=== PATIENT | male | born 1945 | race Caucasian/White ===

== ENCOUNTER 2018-03-12 02:57 | Outpatient (CLI) | payer MEDICARE, SELFPAY ==
[2018-03-12 11:36] LABS: Anion Gap 8.5 mmol/L (3-11); BUN 66 mg/dL (7-18); CO2 29.5 mmol/L (21.0-32.0); CREATININE 2.51 mg/dL (0.70-1.30); Calcium 8.9 mg/dL (8.5-10.1); Chloride 105 mmol/L (98-107); Estimated GFR 25.33 (mL/min/1.73m2); Glucose 90 mg/dL (70-100); Potassium 4.2 mmol/L (3.5-5.1); Sodium 143 mmol/L (136-145)
== END 2018-03-12 03:17 ==
PROVIDERS: PCP Internal Medicine; Visit Provider Internal Medicine Cardiovascular Disease
DX: I10 Essential (primary) hypertension (principal)
CPT/HCPCS: 36415; 80048

== ENCOUNTER 2018-04-19 02:12 | Outpatient (CLI) | payer MEDICARE, SELFPAY ==
[2018-04-19 08:23] LABS: INR 1.6 (1.0-3.5)
== END 2018-04-19 02:32 ==
PROVIDERS: PCP Internal Medicine; Visit Provider Internal Medicine Cardiovascular Disease
DX: I48.91 Unspecified atrial fibrillation (principal)
CPT/HCPCS: 36415; 85610

== ENCOUNTER 2018-04-23 01:41 | Outpatient (CLI) | payer MEDICARE, SELFPAY ==
[2018-04-23 10:13] LABS: INR 2.2 (1.0-3.5); Prothrombin Time 20.7 sec (9.3-10.8)
== END 2018-04-23 02:01 ==
PROVIDERS: PCP Internal Medicine; Visit Provider Internal Medicine Cardiovascular Disease
DX: I48.91 Unspecified atrial fibrillation (principal)
CPT/HCPCS: 36415; 85610

== ENCOUNTER 2018-04-30 02:34 | Outpatient (CLI) | payer MEDICARE, SELFPAY ==
[2018-04-30 07:41] LABS: Bilirubin Negative (Negative); Blood Negative (Negative); Clarity Clear; Glucose Negative (Negative); Ketones Negative (Negative); Leukocyte Esterase Negative (Negative); Nitrite Negative (Negative); Specific Gravity 1.015 (1.005-1.025); Urobilinogen 0.2 EU/dL (Up TO 0.2)
[2018-04-30 07:46] LABS: Abs Immature Grans 0.01 k/cumm (0.0-0.09); Absolute Basophil Count 0.06 k/cumm (0.0-0.2); Absolute Eosinophil Count 0.29 k/cumm (0.0-0.7); Absolute Monocyte Count 0.74 k/cumm (0.11-0.7); Absolute Neutrophil Count 3.31 k/cumm (1.2-6.7); Basophils % 1.1; Eosinophils % 5.1; HCT 31.8 % (40.0-50.0); HGB 10.6 g/dL (13.5-17.5); Immature Grans % 0.2; Lymphocytes % 22.8; Mean Corp. HGB Concentration 33.3 g/dL (32.0-36.0); Mean Corpuscular Hemoglobin 29.5 pg (27.0-33.0); Mean Corpuscular Volume 88.6 fL (80-95); Neutrophils % 57.8; Platelet Count 216 x1000/uL (130-400); RBC 3.59 m/cumm (4.50-6.00); RBC Distribution Width 13.8 % (11.8-14.1); White Blood Cell Count 5.71 k/cumm (4.4-10.8)
[2018-04-30 08:01] LABS: INR 2.5 (1.0-3.5); Prothrombin Time 23.2 sec (9.3-10.8)
[2018-04-30 09:53] LABS: AST 17 U/L (15-37); Albumin 4.2 g/dL (3.4-5.0); Anion Gap 10.4 mmol/L (3-11); BUN 59 mg/dL (7-18); CO2 26.6 mmol/L (21.0-32.0); CREATININE 2.33 mg/dL (0.70-1.30); Calcium 9.4 mg/dL (8.5-10.1); Chloride 103 mmol/L (98-107); Glucose 75 mg/dL (70-100); Sodium 140 mmol/L (136-145)
[2018-04-30 10:20] LABS: Hemoglobin A1C 6.5 % (4.5-6.2)
[2018-04-30 10:24] LABS: ALT 27 U/L (12-78); Alkaline Phosphatase 36 U/L (46-116); Bilirubin, Total 0.5 mg/dL (0.2-1.0); FREE T4 1.15 ng/dL (0.76-1.46); TSH 2.59 uIU/mL (0.358-3.74)
[2018-04-30 10:39] LABS: Cholesterol 113 mg/dL (50-200); HDL Cholesterol 26 mg/dL (40-60); LDL CHOLESTEROL 67 mg/dL (<100); Triglyceride 110 mg/dL (30-150)
[2018-05-01 10:01] LABS: PSA, Diagnostic 0.3 ng/ml (0-6.5)
== END 2018-04-30 02:54 ==
PROVIDERS: Internal Medicine Cardiovascular Disease; PCP Internal Medicine; Visit Provider Internal Medicine
DX: I48.91 Unspecified atrial fibrillation (principal); Z79.01 Long term (current) use of anticoagulants; E11.21 Type 2 diabetes mellitus with diabetic nephropathy; I10 Essential (primary) hypertension; N18.9 Chronic kidney disease, unspecified; N40.0 Benign prostatic hyperplasia without lower urinary tract symptoms; E55.9 Vitamin D deficiency, unspecified
CPT/HCPCS: 36415; 80053; 80061; 82306; 83721; 81003; 83036; 84153; 84439; 84443; 85025; 85610

== ENCOUNTER 2018-05-08 01:44 | Outpatient (CLI) | payer MEDICARE, BC, SELFPAY ==
[2018-05-08 09:28] LABS: INR 2.7 (1.0-3.5); Prothrombin Time 25.4 sec (9.3-10.8)
== END 2018-05-08 02:04 ==
PROVIDERS: PCP Internal Medicine; Visit Provider Internal Medicine Cardiovascular Disease
DX: I48.91 Unspecified atrial fibrillation (principal); Z79.01 Long term (current) use of anticoagulants
CPT/HCPCS: 36415; 85610

== ENCOUNTER 2018-05-14 07:10 | Outpatient (CLI) | payer MEDICARE, BC, SELFPAY ==
[2018-05-14 09:12] LABS: INR 3.1 (1.0-3.5); Prothrombin Time 29.3 sec (9.3-10.8)
== END 2018-05-14 07:30 ==
PROVIDERS: PCP Internal Medicine; Visit Provider Internal Medicine Cardiovascular Disease
DX: I48.91 Unspecified atrial fibrillation (principal)
CPT/HCPCS: 36415; 85610

== ENCOUNTER 2018-05-21 01:59 | Outpatient (CLI) | payer MEDICARE, BC, SELFPAY ==
[2018-05-21 09:00] LABS: INR 3.2 (1.0-3.5); Prothrombin Time 30.1 sec (9.3-10.8)
== END 2018-05-21 02:19 ==
PROVIDERS: PCP Internal Medicine; Visit Provider Internal Medicine Cardiovascular Disease
DX: I48.91 Unspecified atrial fibrillation (principal)
CPT/HCPCS: 36415; 85610

== ENCOUNTER 2018-05-28 01:08 | Outpatient (CLI) | payer MEDICARE, SELFPAY ==
[2018-05-28 09:27] LABS: INR 2.4 (1.0-3.5); Prothrombin Time 22.3 sec (9.3-10.8)
== END 2018-05-28 01:28 ==
PROVIDERS: PCP Internal Medicine; Visit Provider Internal Medicine Cardiovascular Disease
DX: I48.91 Unspecified atrial fibrillation (principal); Z79.01 Long term (current) use of anticoagulants
CPT/HCPCS: 36415; 85610

== ENCOUNTER 2018-06-04 01:59 | Outpatient (CLI) | payer MEDICARE, BC, SELFPAY ==
[2018-06-04 09:22] LABS: INR 2.5 (1.0-3.5); Prothrombin Time 23.3 sec (9.3-10.8)
== END 2018-06-04 02:19 ==
PROVIDERS: PCP Internal Medicine; Visit Provider Internal Medicine Cardiovascular Disease
DX: I48.91 Unspecified atrial fibrillation (principal)
CPT/HCPCS: 36415; 85610

== ENCOUNTER 2018-06-20 02:16 | Outpatient (CLI) | payer MEDICARE, BC, SELFPAY ==
[2018-06-20 09:39] LABS: INR 3.2 (1.0-3.5); Prothrombin Time 32.1 sec (9.3-11.0)
== END 2018-06-20 02:36 ==
PROVIDERS: PCP Internal Medicine; Visit Provider Internal Medicine Cardiovascular Disease
DX: I48.91 Unspecified atrial fibrillation (principal); Z79.01 Long term (current) use of anticoagulants
CPT/HCPCS: 36415; 85610

== ENCOUNTER 2018-06-28 02:22 | Outpatient (CLI) | payer MEDICARE, BC, SELFPAY ==
[2018-06-28 09:23] LABS: Prothrombin Time 40.9 sec (9.3-11.0)
== END 2018-06-28 02:42 ==
PROVIDERS: PCP Internal Medicine; Visit Provider Internal Medicine Cardiovascular Disease
DX: I48.91 Unspecified atrial fibrillation (principal); Z79.01 Long term (current) use of anticoagulants
CPT/HCPCS: 36415; 85610

== ENCOUNTER 2018-07-05 00:51 | Outpatient (CLI) | payer MEDICARE, BC, SELFPAY ==
[2018-07-05 09:04] LABS: INR 3.2 (0.9-1.1); Prothrombin Time 32.2 sec (9.3-11.0)
== END 2018-07-05 01:11 ==
PROVIDERS: PCP Internal Medicine; Visit Provider Internal Medicine Cardiovascular Disease
DX: I48.91 Unspecified atrial fibrillation (principal); Z79.01 Long term (current) use of anticoagulants
CPT/HCPCS: 36415; 85610

== ENCOUNTER 2018-07-12 01:26 | Outpatient (CLI) | payer MEDICARE, BC, SELFPAY ==
[2018-07-12 09:58] LABS: INR 2.3 (0.9-1.1); Prothrombin Time 23.5 sec (9.3-11.0)
== END 2018-07-12 01:46 ==
PROVIDERS: PCP Internal Medicine; Visit Provider Internal Medicine Cardiovascular Disease
DX: I48.91 Unspecified atrial fibrillation (principal); Z79.01 Long term (current) use of anticoagulants
CPT/HCPCS: 36415; 85610

== ENCOUNTER 2018-07-19 06:09 | Outpatient (CLI) | payer MEDICARE, BC, SELFPAY ==
[2018-07-19 08:27] LABS: INR 1.8 (0.9-1.1)
== END 2018-07-19 06:29 ==
PROVIDERS: PCP Internal Medicine; Visit Provider Internal Medicine Cardiovascular Disease
DX: I48.91 Unspecified atrial fibrillation (principal); Z79.01 Long term (current) use of anticoagulants
CPT/HCPCS: 36415; 85610

== ENCOUNTER 2018-07-26 06:34 | Outpatient (CLI) | payer MEDICARE, BC, SELFPAY ==
[2018-07-26 08:10] LABS: INR 1.5 (0.9-1.1); Prothrombin Time 14.9 sec (9.3-11.0)
== END 2018-07-26 06:54 ==
PROVIDERS: PCP Internal Medicine; Visit Provider Internal Medicine Cardiovascular Disease
DX: I48.91 Unspecified atrial fibrillation (principal); Z79.01 Long term (current) use of anticoagulants
CPT/HCPCS: 36415; 85610

== ENCOUNTER 2018-08-02 01:30 | Outpatient (CLI) | payer MEDICARE, BC, SELFPAY ==
[2018-08-02 09:25] LABS: INR 1.7 (0.9-1.1); Prothrombin Time 17.4 sec (9.3-11.0)
== END 2018-08-02 01:50 ==
PROVIDERS: PCP Internal Medicine; Visit Provider Internal Medicine Cardiovascular Disease
DX: I48.91 Unspecified atrial fibrillation (principal); Z79.01 Long term (current) use of anticoagulants
CPT/HCPCS: 36415; 85610

== ENCOUNTER 2018-08-09 06:47 | Outpatient (CLI) | payer MEDICARE, BC, SELFPAY ==
[2018-08-09 08:44] LABS: INR 2.1 (0.9-1.1); Prothrombin Time 21.1 sec (9.3-11.0)
== END 2018-08-09 07:07 ==
PROVIDERS: PCP Internal Medicine; Visit Provider Internal Medicine Cardiovascular Disease
DX: I48.91 Unspecified atrial fibrillation (principal); Z79.01 Long term (current) use of anticoagulants
CPT/HCPCS: 36415; 85610

== ENCOUNTER 2018-08-16 06:42 | Outpatient (CLI) | payer MEDICARE, BC, SELFPAY ==
[2018-08-16 08:31] LABS: INR 2.1 (0.9-1.1); Prothrombin Time 21.5 sec (9.3-11.0)
== END 2018-08-16 07:02 ==
PROVIDERS: PCP Internal Medicine; Visit Provider Internal Medicine Cardiovascular Disease
DX: I48.91 Unspecified atrial fibrillation (principal); Z79.01 Long term (current) use of anticoagulants
CPT/HCPCS: 36415; 85610

== ENCOUNTER 2018-08-23 01:32 | Outpatient (CLI) | payer MEDICARE, BC, SELFPAY ==
[2018-08-23 09:07] LABS: INR 2.1 (0.9-1.1); Prothrombin Time 21.3 sec (9.3-11.0)
== END 2018-08-23 01:52 ==
PROVIDERS: PCP Internal Medicine; Visit Provider Internal Medicine Cardiovascular Disease
DX: I48.91 Unspecified atrial fibrillation (principal); Z79.01 Long term (current) use of anticoagulants
CPT/HCPCS: 36415; 85025; 85610

== ENCOUNTER 2018-09-20 07:02 | Outpatient (CLI) | payer MEDICARE, BC, SELFPAY ==
[2018-09-20 10:09] LABS: INR 1.8 (0.9-1.1); Prothrombin Time 18.4 sec (9.3-11.0)
== END 2018-09-20 07:22 ==
PROVIDERS: PCP Internal Medicine; Visit Provider Internal Medicine Cardiovascular Disease
DX: I48.91 Unspecified atrial fibrillation (principal); Z79.01 Long term (current) use of anticoagulants
CPT/HCPCS: 36415; 85610

== ENCOUNTER 2018-09-27 07:41 | Outpatient (CLI) | payer MEDICARE, BC, SELFPAY ==
[2018-09-27 09:46] LABS: INR 2.4 (0.9-1.1); Prothrombin Time 23.8 sec (9.3-11.0)
== END 2018-09-27 08:01 ==
PROVIDERS: PCP Internal Medicine; Visit Provider Internal Medicine Cardiovascular Disease
DX: I48.91 Unspecified atrial fibrillation (principal); Z79.01 Long term (current) use of anticoagulants
CPT/HCPCS: 36415; 85610

== ENCOUNTER 2018-10-04 01:27 | Outpatient (CLI) | payer MEDICARE, BC, SELFPAY ==
[2018-10-04 09:22] LABS: INR 2.3 (0.9-1.1); Prothrombin Time 22.9 sec (9.3-11.0)
== END 2018-10-04 01:47 ==
PROVIDERS: PCP Internal Medicine; Visit Provider Internal Medicine Cardiovascular Disease
DX: I48.91 Unspecified atrial fibrillation (principal); Z79.01 Long term (current) use of anticoagulants
CPT/HCPCS: 36415; 85610

== ENCOUNTER 2018-10-18 11:45 | Outpatient (CLI) | payer MEDICARE, BC, SELFPAY ==
[2018-10-18 08:43] LABS: INR 1.8 (0.9-1.1); Prothrombin Time 18.1 sec (9.3-11.0)
== END 2018-10-18 12:05 ==
PROVIDERS: PCP Internal Medicine; Visit Provider Internal Medicine Cardiovascular Disease
DX: I48.91 Unspecified atrial fibrillation (principal); Z79.01 Long term (current) use of anticoagulants
CPT/HCPCS: 36415; 85610

== ENCOUNTER 2018-10-24 01:26 | Outpatient (CLI) | payer MEDICARE, BC, SELFPAY ==
[2018-10-24 08:32] LABS: INR 1.7 (0.9-1.1); Prothrombin Time 17.1 sec (9.3-11.0)
== END 2018-10-24 01:46 ==
PROVIDERS: PCP Internal Medicine; Visit Provider Internal Medicine Cardiovascular Disease
DX: I48.91 Unspecified atrial fibrillation (principal); Z79.01 Long term (current) use of anticoagulants
CPT/HCPCS: 36415; 85610

== ENCOUNTER 2018-11-08 06:37 | Outpatient (CLI) | payer MEDICARE, BC, SELFPAY ==
[2018-11-08 08:14] LABS: INR 1.2 (0.9-1.1); Prothrombin Time 11.9 sec (9.3-11.0)
== END 2018-11-08 06:57 ==
PROVIDERS: PCP Internal Medicine; Visit Provider Internal Medicine Cardiovascular Disease
DX: I48.91 Unspecified atrial fibrillation (principal); Z79.01 Long term (current) use of anticoagulants
CPT/HCPCS: 36415; 85610

== ENCOUNTER 2018-11-13 02:38 | Outpatient (CLI) | payer MEDICARE, BC, SELFPAY ==
[2018-11-13 07:55] LABS: INR 1.4 (0.9-1.1)
== END 2018-11-13 02:58 ==
PROVIDERS: PCP Internal Medicine; Visit Provider Internal Medicine Cardiovascular Disease
DX: I48.91 Unspecified atrial fibrillation (principal); Z79.01 Long term (current) use of anticoagulants
CPT/HCPCS: 36415; 85610

== ENCOUNTER 2018-11-19 01:49 | Outpatient (CLI) | payer MEDICARE, BC, SELFPAY ==
[2018-11-19 08:32] LABS: INR 2.1 (0.9-1.1); Prothrombin Time 20.7 sec (9.3-11.0)
== END 2018-11-19 02:09 ==
PROVIDERS: PCP Internal Medicine; Visit Provider Internal Medicine Cardiovascular Disease
DX: I48.91 Unspecified atrial fibrillation (principal); Z79.01 Long term (current) use of anticoagulants
CPT/HCPCS: 36415; 85610

== ENCOUNTER 2018-11-26 06:56 | Outpatient (CLI) | payer MEDICARE, BC, SELFPAY ==
[2018-11-26 08:12] LABS: INR 2.5 (0.9-1.1); Prothrombin Time 24.9 sec (9.3-11.0)
== END 2018-11-26 07:16 ==
PROVIDERS: PCP Internal Medicine; Visit Provider Internal Medicine Cardiovascular Disease
DX: I48.91 Unspecified atrial fibrillation (principal); Z79.01 Long term (current) use of anticoagulants
CPT/HCPCS: 36415; 85610

== ENCOUNTER 2018-12-03 01:46 | Outpatient (CLI) | payer MEDICARE, BC, SELFPAY ==
[2018-12-03 08:18] LABS: Prothrombin Time 20.3 sec (9.3-11.0)
== END 2018-12-03 02:06 ==
PROVIDERS: PCP Internal Medicine; Visit Provider Internal Medicine Cardiovascular Disease
DX: I48.91 Unspecified atrial fibrillation (principal)
CPT/HCPCS: 36415; 85610

== ENCOUNTER 2018-12-17 01:42 | Outpatient (CLI) | payer MEDICARE, BC, SELFPAY ==
[2018-12-17 08:18] LABS: INR 2.2 (0.9-1.1)
== END 2018-12-17 02:02 ==
PROVIDERS: PCP Internal Medicine; Visit Provider Internal Medicine Cardiovascular Disease
DX: I48.91 Unspecified atrial fibrillation (principal); Z79.01 Long term (current) use of anticoagulants
CPT/HCPCS: 36415; 85610

== ENCOUNTER 2019-01-14 01:40 | Outpatient (CLI) | payer MEDICARE, BC, SELFPAY ==
[2019-01-14 08:39] LABS: INR 2.1 (0.9-1.1); Prothrombin Time 20.9 sec (9.3-11.0)
== END 2019-01-14 02:00 ==
PROVIDERS: PCP Internal Medicine; Visit Provider Internal Medicine Cardiovascular Disease
DX: I48.91 Unspecified atrial fibrillation (principal); Z79.01 Long term (current) use of anticoagulants
CPT/HCPCS: 36415; 85610

== ENCOUNTER 2019-02-10 06:53 | Outpatient (CLI) | payer MEDICARE, BC, SELFPAY ==
[2019-02-10 08:16] LABS: INR 1.8 (0.9-1.1); Prothrombin Time 17.9 sec (9.3-11.0)
[2019-02-10 09:07] LABS: ALT 31 U/L (12-78); AST 14 U/L (15-37); Alkaline Phosphatase 36 U/L (46-116); Anion Gap 10.6 mmol/L (3-11); BUN 53 mg/dL (7-18); Bilirubin, Total 0.3 mg/dL (0.2-1.0); CO2 25.4 mmol/L (21.0-32.0); CREATININE 2.13 mg/dL (0.70-1.30); Chloride 104 mmol/L (98-107); Estimated GFR 30.52 (mL/min/1.73m2); Glucose 156 mg/dL (70-100); Potassium 4.5 mmol/L (3.5-5.1); Sodium 140 mmol/L (136-145); Total Protein 7.3 g/dL (6.4-8.2)
== END 2019-02-10 07:13 ==
PROVIDERS: Internal Medicine Cardiovascular Disease; PCP Internal Medicine; Visit Provider Internal Medicine Endocrinology, Diabetes & Metabolism
DX: E11.65 Type 2 diabetes mellitus with hyperglycemia (principal); I48.91 Unspecified atrial fibrillation; Z79.01 Long term (current) use of anticoagulants
CPT/HCPCS: 36415; 80053; 85610

== ENCOUNTER 2019-02-18 01:23 | Outpatient (CLI) | payer MEDICARE, BC, SELFPAY ==
[2019-02-18 08:14] LABS: INR 2.2 (0.9-1.1); Prothrombin Time 22.1 sec (9.3-11.0)
== END 2019-02-18 01:43 ==
PROVIDERS: PCP Internal Medicine; Visit Provider Internal Medicine Cardiovascular Disease
DX: I48.91 Unspecified atrial fibrillation (principal); Z79.01 Long term (current) use of anticoagulants
CPT/HCPCS: 36415; 85610

== ENCOUNTER 2019-03-04 00:45 | Outpatient (CLI) | payer MEDICARE, BC, SELFPAY ==
[2019-03-04 08:49] LABS: INR 1.7 (0.9-1.1); Prothrombin Time 17.2 sec (9.3-11.0)
== END 2019-03-04 01:05 ==
PROVIDERS: PCP Internal Medicine; Visit Provider Internal Medicine Cardiovascular Disease
DX: I48.91 Unspecified atrial fibrillation (principal); Z79.01 Long term (current) use of anticoagulants
CPT/HCPCS: 36415; 85610

== ENCOUNTER 2019-03-11 07:14 | Outpatient (CLI) | payer MEDICARE, BC, SELFPAY ==
[2019-03-11 09:00] LABS: INR 2.1 (0.9-1.1); Prothrombin Time 21.2 sec (9.3-11.0)
== END 2019-03-11 07:34 ==
PROVIDERS: PCP Internal Medicine; Visit Provider Internal Medicine Cardiovascular Disease
DX: I48.91 Unspecified atrial fibrillation (principal); Z79.01 Long term (current) use of anticoagulants
CPT/HCPCS: 36415; 85610

== ENCOUNTER 2019-03-18 07:20 | Outpatient (CLI) | payer MEDICARE, BC, SELFPAY ==
[2019-03-18 09:58] LABS: INR 1.8 (0.9-1.1); Prothrombin Time 17.4 sec (9.3-11.0)
== END 2019-03-18 07:40 ==
PROVIDERS: PCP Internal Medicine; Visit Provider Internal Medicine Cardiovascular Disease
DX: I48.91 Unspecified atrial fibrillation (principal); Z79.01 Long term (current) use of anticoagulants
CPT/HCPCS: 36415; 85610

== ENCOUNTER 2019-03-25 06:41 | Outpatient (CLI) | payer MEDICARE, BC, SELFPAY ==
[2019-03-25 07:59] LABS: INR 2.1 (0.9-1.1); Prothrombin Time 20.3 sec (9.3-11.0)
== END 2019-03-25 07:01 ==
PROVIDERS: PCP Internal Medicine; Visit Provider Internal Medicine Cardiovascular Disease
DX: I48.91 Unspecified atrial fibrillation (principal); Z79.01 Long term (current) use of anticoagulants
CPT/HCPCS: 36415; 85610

== ENCOUNTER 2019-03-31 06:51 | Outpatient (CLI) | payer MEDICARE, BC, SELFPAY ==
[2019-03-31 08:31] LABS: INR 2.8 (0.9-1.1)
== END 2019-03-31 07:11 ==
PROVIDERS: PCP Internal Medicine; Visit Provider Internal Medicine Cardiovascular Disease
DX: I48.91 Unspecified atrial fibrillation (principal); Z79.01 Long term (current) use of anticoagulants
CPT/HCPCS: 36415; 85610

== ENCOUNTER 2019-04-08 02:07 | Outpatient (CLI) | payer MEDICARE, BC, SELFPAY ==
[2019-04-08 08:11] LABS: INR 1.5 (0.9-1.1); Prothrombin Time 15.4 sec (9.3-11.0)
== END 2019-04-08 02:27 ==
PROVIDERS: PCP Internal Medicine; Visit Provider Internal Medicine Cardiovascular Disease
DX: I48.91 Unspecified atrial fibrillation (principal); Z79.01 Long term (current) use of anticoagulants
CPT/HCPCS: 36415; 85610

== ENCOUNTER 2019-04-15 06:45 | Outpatient (CLI) | payer MEDICARE, BC, SELFPAY ==
[2019-04-15 09:05] LABS: INR 2.2 (0.9-1.1)
== END 2019-04-15 07:05 ==
PROVIDERS: PCP Internal Medicine; Visit Provider Internal Medicine Cardiovascular Disease
DX: I48.91 Unspecified atrial fibrillation (principal); Z79.01 Long term (current) use of anticoagulants
CPT/HCPCS: 36415; 85610

== ENCOUNTER 2019-04-22 02:36 | Outpatient (CLI) | payer MEDICARE, BC, SELFPAY ==
[2019-04-22 08:24] LABS: INR 2.3 (0.9-1.1); Prothrombin Time 22.3 sec (9.3-11.0)
== END 2019-04-22 02:56 ==
PROVIDERS: PCP Internal Medicine; Visit Provider Internal Medicine Cardiovascular Disease
DX: I48.91 Unspecified atrial fibrillation (principal); Z79.01 Long term (current) use of anticoagulants
CPT/HCPCS: 36415; 85610

== ENCOUNTER 2019-04-29 01:51 | Outpatient (CLI) | payer MEDICARE, BC, SELFPAY ==
[2019-04-29 08:22] LABS: INR 2.1 (0.9-1.1); Prothrombin Time 21.1 sec (9.3-11.0)
== END 2019-04-29 02:11 ==
PROVIDERS: PCP Internal Medicine; Visit Provider Internal Medicine Cardiovascular Disease
DX: I48.91 Unspecified atrial fibrillation (principal); Z79.01 Long term (current) use of anticoagulants
CPT/HCPCS: 36415; 85610

== ENCOUNTER 2019-05-13 01:52 | Outpatient (CLI) | payer MEDICARE, BC, SELFPAY ==
[2019-05-13 08:38] LABS: Hemoglobin A1C 7.7 % (4.5-6.2)
[2019-05-13 08:46] LABS: INR 2.6 (0.9-1.1); Prothrombin Time 25.7 sec (9.3-11.0)
[2019-05-13 08:50] LABS: ALT 33 U/L (16-63); AST 19 U/L (15-37); Alkaline Phosphatase 37 U/L (46-116); Anion Gap 10.2 mmol/L (3-11); BUN 50 mg/dL (7-18); Bilirubin, Total 0.5 mg/dL (0.2-1.0); CO2 26.8 mmol/L (21.0-32.0); CREATININE 1.99 mg/dL (0.70-1.30); Calcium 9.2 mg/dL (8.5-10.1); Chloride 105 mmol/L (98-107); Estimated GFR 33.01 (mL/min/1.73m2); Glucose 178 mg/dL (70-100); Potassium 4.2 mmol/L (3.5-5.1); Sodium 142 mmol/L (136-145); Total Protein 7.3 g/dL (6.4-8.2)
== END 2019-05-13 02:12 ==
PROVIDERS: Internal Medicine Cardiovascular Disease; PCP Internal Medicine; Visit Provider Internal Medicine
DX: I10 Essential (primary) hypertension (principal); E11.00 Type 2 diabetes mellitus with hyperosmolarity without nonketotic hyperglycemic-hyperosmolar coma (NKHHC); I48.91 Unspecified atrial fibrillation; Z79.01 Long term (current) use of anticoagulants
CPT/HCPCS: 36415; 80053; 83036; 85610

== ENCOUNTER 2019-06-10 03:03 | Outpatient (CLI) | payer MEDICARE, BC, SELFPAY ==
[2019-06-10 08:49] LABS: INR 3.9 (0.9-1.1); Prothrombin Time 38.2 sec (9.3-11.0)
== END 2019-06-10 03:23 ==
PROVIDERS: PCP Internal Medicine; Visit Provider Internal Medicine Cardiovascular Disease
DX: I48.91 Unspecified atrial fibrillation (principal); Z79.01 Long term (current) use of anticoagulants
CPT/HCPCS: 36415; 85610

== ENCOUNTER 2019-06-24 01:39 | Outpatient (CLI) | payer MEDICARE, BC, SELFPAY ==
[2019-06-24 09:19] LABS: INR 3.8 (0.9-1.1); Prothrombin Time 36.5 sec (9.3-11.0)
== END 2019-06-24 01:59 ==
PROVIDERS: PCP Internal Medicine; Visit Provider Internal Medicine Cardiovascular Disease
DX: I48.91 Unspecified atrial fibrillation (principal); Z79.01 Long term (current) use of anticoagulants
CPT/HCPCS: 36415; 85610

== ENCOUNTER 2019-07-01 01:50 | Outpatient (CLI) | payer MEDICARE, BC, SELFPAY ==
[2019-07-01 08:48] LABS: INR 2.8 (0.9-1.1); Prothrombin Time 27.4 sec (9.3-11.0)
== END 2019-07-01 02:10 ==
PROVIDERS: PCP Internal Medicine; Visit Provider Internal Medicine Cardiovascular Disease
DX: I48.91 Unspecified atrial fibrillation (principal); Z79.01 Long term (current) use of anticoagulants
CPT/HCPCS: 36415; 85610

== ENCOUNTER 2019-08-06 02:28 | Outpatient (CLI) | payer MEDICARE, BC, SELFPAY ==
[2019-08-06 11:34] LABS: Prothrombin Time 21.2 sec (9.3-11.0)
[2019-08-06 11:37] LABS: ALT 20 U/L (16-63); AST 16 U/L (15-37); Albumin 3.7 g/dL (3.4-5.0); Alkaline Phosphatase 56 U/L (46-116); Anion Gap 10.8 mmol/L (3-11); BUN 36 mg/dL (7-18); Bilirubin, Total 0.6 mg/dL (0.2-1.0); CO2 28.2 mmol/L (21.0-32.0); CREATININE 1.96 mg/dL (0.70-1.30); Chloride 101 mmol/L (98-107); Glucose 175 mg/dL (74-106); INR 2.1 (0.9-1.1); Magnesium 1.8 mg/dL (1.8-2.4); NT-proBNP 967 pg/mL (<300); Potassium 3.8 mmol/L (3.5-5.1); Sodium 140 mmol/L (136-145); Total Protein 7.2 g/dL (6.4-8.2)
== END 2019-08-06 02:48 ==
PROVIDERS: PCP Internal Medicine; Visit Provider Internal Medicine Cardiovascular Disease
DX: I48.91 Unspecified atrial fibrillation (principal); I50.9 Heart failure, unspecified; Z79.01 Long term (current) use of anticoagulants
CPT/HCPCS: 36415; 80053; 83735; 83880; 85610

== ENCOUNTER 2019-08-13 03:22 | Outpatient (CLI) | payer MEDICARE, BC, SELFPAY ==
[2019-08-13 11:27] LABS: INR 1.8 (0.9-1.1); Prothrombin Time 17.9 sec (9.3-11.0)
== END 2019-08-13 03:42 ==
PROVIDERS: PCP Internal Medicine; Visit Provider Internal Medicine Cardiovascular Disease
DX: I48.91 Unspecified atrial fibrillation (principal); Z79.01 Long term (current) use of anticoagulants
CPT/HCPCS: 36415; 85610

== ENCOUNTER 2019-08-19 02:23 | Outpatient (CLI) | payer MEDICARE, BC, SELFPAY ==
[2019-08-19 10:31] LABS: INR 2.1 (0.9-1.1)
== END 2019-08-19 02:43 ==
PROVIDERS: PCP Internal Medicine; Visit Provider Internal Medicine Cardiovascular Disease
DX: I48.91 Unspecified atrial fibrillation (principal); Z79.01 Long term (current) use of anticoagulants
CPT/HCPCS: 36415; 85610

== ENCOUNTER 2019-08-26 07:08 | Outpatient (CLI) | payer MEDICARE, BC, SELFPAY ==
[2019-08-26 11:55] LABS: INR 1.9 (0.9-1.1); Prothrombin Time 18.9 sec (9.3-11.0)
== END 2019-08-26 07:28 ==
PROVIDERS: PCP Internal Medicine; Visit Provider Internal Medicine Cardiovascular Disease
DX: I48.91 Unspecified atrial fibrillation (principal)
CPT/HCPCS: 36415; 85610

== ENCOUNTER 2019-09-01 01:48 | Outpatient (CLI) | payer MEDICARE, BC, SELFPAY ==
[2019-09-01 09:48] LABS: INR 2.4 (0.9-1.1); Prothrombin Time 23.5 sec (9.3-11.0)
[2019-09-01 10:01] LABS: Hemoglobin A1C 7.5 % (3.8-5.6)
[2019-09-01 10:37] LABS: ALT 21 U/L (16-63); AST 14 U/L (15-37); Albumin 3.9 g/dL (3.4-5.0); Alkaline Phosphatase 44 U/L (46-116); Anion Gap 8.1 mmol/L (3-11); BUN 46 mg/dL (7-18); Bilirubin, Total 0.4 mg/dL (0.2-1.0); CO2 29.9 mmol/L (21.0-32.0); CREATININE 2.02 mg/dL (0.70-1.30); Calcium 9.3 mg/dL (8.5-10.1); Calculated LDL 78 mg/dL (<100); Chloride 105 mmol/L (98-107); Cholesterol 128 mg/dL (<200); Estimated GFR 32.45 (mL/min/1.73m2); Glucose 159 mg/dL (74-106); HDL Cholesterol 23 mg/dL (40-60); Potassium 4.3 mmol/L (3.5-5.1); Sodium 143 mmol/L (136-145); Total Protein 7.2 g/dL (6.4-8.2); Triglyceride 139 mg/dL (<150)
== END 2019-09-01 02:08 ==
PROVIDERS: PCP Internal Medicine; Visit Provider Internal Medicine Cardiovascular Disease
DX: E11.9 Type 2 diabetes mellitus without complications (principal); Z79.4 Long term (current) use of insulin; N18.3 Chronic kidney disease, stage 3 (moderate); I48.91 Unspecified atrial fibrillation
CPT/HCPCS: 36415; 80053; 80061; 83036; 85610

== ENCOUNTER 2019-09-16 02:49 | Outpatient (CLI) | payer MEDICARE, BC, SELFPAY ==
[2019-09-16 11:01] LABS: INR 1.7 (0.9-1.1)
== END 2019-09-16 03:09 ==
PROVIDERS: PCP Internal Medicine; Visit Provider Internal Medicine Cardiovascular Disease
DX: I48.91 Unspecified atrial fibrillation (principal); Z79.01 Long term (current) use of anticoagulants
CPT/HCPCS: 36415; 85610

== ENCOUNTER 2019-09-23 04:28 | Outpatient (CLI) | payer MEDICARE, BC, SELFPAY ==
[2019-09-23 11:30] LABS: INR 1.9 (0.9-1.1); Prothrombin Time 18.4 sec (9.3-11.0)
== END 2019-09-23 04:48 ==
PROVIDERS: PCP Internal Medicine; Visit Provider Internal Medicine Cardiovascular Disease
DX: I48.91 Unspecified atrial fibrillation (principal)
CPT/HCPCS: 36415; 85610

== ENCOUNTER 2019-09-30 01:36 | Outpatient (CLI) | payer MEDICARE, BC, SELFPAY | END 2019-09-30 01:56 | PROVIDERS: PCP Internal Medicine; Visit Provider Internal Medicine Cardiovascular Disease | DX: I48.91 Unspecified atrial fibrillation (principal); Z79.01 Long term (current) use of anticoagulants | CPT/HCPCS: 36415; 85610 ==

== ENCOUNTER 2019-10-23 01:16 | Outpatient (CLI) | payer MEDICARE, BC, SELFPAY ==
[2019-10-23 15:29] LABS: INR 2.4 (0.9-1.1)
[2019-10-23 17:07] LABS: Anion Gap 10.1 mmol/L (3-11); BUN 68 mg/dL (7-18); CO2 26.9 mmol/L (21.0-32.0); CREATININE 2.61 mg/dL (0.70-1.30); Chloride 103 mmol/L (98-107); Estimated GFR 24.14 (mL/min/1.73m2); Glucose 149 mg/dL (74-106); Potassium 5.2 mmol/L (3.5-5.1); Sodium 140 mmol/L (136-145)
== END 2019-10-23 01:36 ==
PROVIDERS: Internal Medicine Cardiovascular Disease; PCP Internal Medicine; Visit Provider Nurse Practitioner Adult Health
DX: I48.91 Unspecified atrial fibrillation (principal); I10 Essential (primary) hypertension
CPT/HCPCS: 36415; 80048; 85610

== ENCOUNTER 2019-11-27 03:48 | Outpatient (CLI) | payer MEDICARE, BC, SELFPAY ==
[2019-11-27 12:02] LABS: INR 3.5 (0.9-1.1); Prothrombin Time 34.3 sec (9.3-11.0)
[2019-11-27 12:58] LABS: Anion Gap 7.9 mmol/L (3-11); CO2 26.1 mmol/L (21.0-32.0); CREATININE 2.97 mg/dL (0.70-1.30); Calcium 9.6 mg/dL (8.5-10.1); Chloride 105 mmol/L (98-107); Estimated GFR 20.74 (mL/min/1.73m2); Glucose 149 mg/dL (74-106); Potassium 5.2 mmol/L (3.5-5.1); Sodium 139 mmol/L (136-145)
[2019-11-27 13:26] LABS: BUN 94 mg/dL (7-18)
== END 2019-11-27 04:08 ==
PROVIDERS: PCP Internal Medicine; Visit Provider Internal Medicine Cardiovascular Disease
DX: I48.91 Unspecified atrial fibrillation (principal); Z79.01 Long term (current) use of anticoagulants; I10 Essential (primary) hypertension
CPT/HCPCS: 36415; 80048; 85610

== ENCOUNTER 2019-12-04 02:48 | Outpatient (CLI) | payer MEDICARE, BC, SELFPAY ==
[2019-12-04 12:07] LABS: INR 2.7 (0.9-1.1); Prothrombin Time 26.7 sec (9.3-11.0)
== END 2019-12-04 03:08 ==
PROVIDERS: PCP Internal Medicine; Visit Provider Internal Medicine Cardiovascular Disease
DX: I48.91 Unspecified atrial fibrillation (principal); Z79.01 Long term (current) use of anticoagulants
CPT/HCPCS: 36415; 85610

== ENCOUNTER 2019-12-10 04:11 | Outpatient (CLI) | payer MEDICARE, BC, SELFPAY ==
[2019-12-10 16:02] LABS: INR 3.9 (0.9-1.1); Prothrombin Time 37.7 sec (9.3-11.0)
== END 2019-12-10 04:31 ==
PROVIDERS: PCP Internal Medicine; Visit Provider Internal Medicine Cardiovascular Disease
DX: I48.91 Unspecified atrial fibrillation (principal)
CPT/HCPCS: 36415; 85610

== ENCOUNTER 2019-12-17 02:32 | Outpatient (CLI) | payer MEDICARE, BC, SELFPAY ==
[2019-12-17 16:26] LABS: INR 2.9 (0.9-1.1)
== END 2019-12-17 02:52 ==
PROVIDERS: PCP Internal Medicine; Visit Provider Internal Medicine Cardiovascular Disease
DX: I48.91 Unspecified atrial fibrillation (principal); Z79.01 Long term (current) use of anticoagulants
CPT/HCPCS: 36415; 85610

== ENCOUNTER 2019-12-30 02:12 | Outpatient (CLI) | payer MEDICARE, BC, SELFPAY ==
[2019-12-30 15:19] LABS: INR 1.8 (0.9-1.1); Prothrombin Time 18.2 sec (9.3-11.0)
== END 2019-12-30 02:32 ==
PROVIDERS: PCP Internal Medicine; Visit Provider Internal Medicine Cardiovascular Disease
DX: I48.91 Unspecified atrial fibrillation (principal)
CPT/HCPCS: 36415; 85610

== ENCOUNTER 2020-01-07 01:20 | Outpatient (CLI) | payer MEDICARE, BC, SELFPAY ==
[2020-01-07 15:28] LABS: INR 1.8 (0.9-1.1); Prothrombin Time 17.6 sec (9.3-11.0)
== END 2020-01-07 01:40 ==
PROVIDERS: PCP Internal Medicine; Visit Provider Internal Medicine Cardiovascular Disease
DX: I48.91 Unspecified atrial fibrillation (principal)
CPT/HCPCS: 36415; 85610

== ENCOUNTER 2020-01-14 04:02 | Outpatient (CLI) | payer MEDICARE, BC, SELFPAY ==
[2020-01-14 15:15] LABS: INR 1.6 (0.9-1.1); Prothrombin Time 15.6 sec (9.3-11.0)
== END 2020-01-14 04:22 ==
PROVIDERS: PCP Internal Medicine; Visit Provider Internal Medicine Cardiovascular Disease
DX: Z79.01 Long term (current) use of anticoagulants (principal); I48.91 Unspecified atrial fibrillation
CPT/HCPCS: 36415; 85610

== ENCOUNTER 2020-01-21 03:01 | Outpatient (CLI) | payer MEDICARE, BC, SELFPAY ==
[2020-01-21 15:28] LABS: Prothrombin Time 19.5 sec (9.3-11.0)
== END 2020-01-21 03:21 ==
PROVIDERS: PCP Internal Medicine; Visit Provider Internal Medicine Cardiovascular Disease
DX: I48.91 Unspecified atrial fibrillation (principal)
CPT/HCPCS: 36415; 85610

== ENCOUNTER 2020-01-28 03:56 | Outpatient (CLI) | payer MEDICARE, BC, SELFPAY ==
[2020-01-28 15:39] LABS: INR 2.2 (0.9-1.1); Prothrombin Time 21.5 sec (9.3-11.0)
== END 2020-01-28 04:16 ==
PROVIDERS: PCP Internal Medicine; Visit Provider Internal Medicine Cardiovascular Disease
DX: I48.91 Unspecified atrial fibrillation (principal)
CPT/HCPCS: 36415; 85610

== ENCOUNTER 2020-02-04 02:37 | Outpatient (CLI) | payer MEDICARE, BC, SELFPAY ==
[2020-02-04 15:24] LABS: Prothrombin Time 19.8 sec (9.3-11.0)
== END 2020-02-04 02:57 ==
PROVIDERS: PCP Internal Medicine; Visit Provider Internal Medicine Cardiovascular Disease
DX: I48.91 Unspecified atrial fibrillation (principal)
CPT/HCPCS: 36415; 85610

== ENCOUNTER 2020-02-18 03:04 | Outpatient (CLI) | payer MEDICARE, BC, SELFPAY ==
[2020-02-18 15:26] LABS: INR 1.7 (0.9-1.1); Prothrombin Time 17.2 sec (9.3-11.0)
== END 2020-02-18 03:24 ==
PROVIDERS: Internal Medicine Cardiovascular Disease; PCP Internal Medicine; Visit Provider Plastic Surgery
DX: I48.91 Unspecified atrial fibrillation (principal)
CPT/HCPCS: 36415; 85610

== ENCOUNTER 2020-02-25 05:11 | Outpatient (CLI) | payer MEDICARE, BC, SELFPAY ==
[2020-02-25 15:25] LABS: Prothrombin Time 20.2 sec (9.3-11.0)
== END 2020-02-25 05:31 ==
PROVIDERS: PCP Internal Medicine; Visit Provider Internal Medicine Cardiovascular Disease
DX: I48.91 Unspecified atrial fibrillation (principal)
CPT/HCPCS: 36415; 85610

== ENCOUNTER 2020-03-04 02:59 | Outpatient (CLI) | payer MEDICARE, BC, SELFPAY ==
[2020-03-04 15:12] LABS: INR 1.9 (0.9-1.1); Prothrombin Time 19.1 sec (9.3-11.0)
== END 2020-03-04 03:19 ==
PROVIDERS: PCP Internal Medicine; Visit Provider Internal Medicine Cardiovascular Disease
DX: I48.91 Unspecified atrial fibrillation (principal)
CPT/HCPCS: 36415; 85610

== ENCOUNTER 2020-03-12 02:31 | Outpatient (CLI) | payer MEDICARE, BC, SELFPAY ==
[2020-03-12 08:30] LABS: Abs Immature Grans 0.03 10^3/uL (0.0-0.06); Absolute Basophil Count 0.08 10^3/uL (0.0-0.2); Absolute Eosinophil Count 0.23 10^3/uL (0.0-0.7); Absolute Lymphocyte Count 1.03 10^3/uL (1.2-3.4); Absolute Monocyte Count 0.67 10^3/uL (0.1-0.8); Absolute Neutrophil Count 3.52 10^3/uL (1.2-6.7); Basophils % 1.4; Eosinophils % 4.1; HCT 37.7 % (40.0-50.0); HGB 12.3 g/dL (13.5-17.5); Immature Grans % 0.5; Lymphocytes % 18.5; MCH 29.7 pg (27.0-33.0); MCHC 32.6 % (32.0-36.0); MCV 91.1 fL (80-95); MPV 9.7 fL (8.0-11.0); Monocytes % 12.1; Neutrophils % 63.4; Nucleated RBC 0 %; Platelet Count 222 10^3/uL (130-400); RBC 4.14 10^6/uL (4.36-5.78); RDW 13.3 % (11.8-14.1); RDW-SD 45.1 fL; WBC 5.56 10^3/uL (4.4-10.8)
[2020-03-12 08:40] LABS: INR 1.9 (0.9-1.1); Prothrombin Time 19.2 sec (9.3-11.0)
[2020-03-12 08:51] LABS: Hemoglobin A1C 7.2 % (<5.7)
[2020-03-12 09:26] LABS: ALT 56 U/L (16-63); AST 19 U/L (15-37); Albumin 4.1 g/dL (3.4-5.0); Alkaline Phosphatase 57 U/L (46-116); Anion Gap 7.5 mmol/L (3-11); BUN 45 mg/dL (7-18); Bilirubin, Total 0.4 mg/dL (0.2-1.0); CO2 28.5 mmol/L (21.0-32.0); CREATININE 1.87 mg/dL (0.70-1.30); Calcium 9.5 mg/dL (8.5-10.1); Calculated LDL 76 mg/dL (<100); Chloride 105 mmol/L (98-107); Cholesterol 137 mg/dL (<200); Estimated GFR 35.38 (mL/min/1.73m2); Glucose 189 mg/dL (74-106); HDL Cholesterol 23 mg/dL (40-60); Potassium 4.8 mmol/L (3.5-5.1); Sodium 141 mmol/L (136-145); Total Protein 7.3 g/dL (6.4-8.2); Triglyceride 190 mg/dL (<150)
== END 2020-03-12 02:51 ==
PROVIDERS: Internal Medicine Cardiovascular Disease; PCP Internal Medicine; Visit Provider Internal Medicine
DX: I10 Essential (primary) hypertension (principal); E11.649 Type 2 diabetes mellitus with hypoglycemia without coma; Z79.4 Long term (current) use of insulin; Z79.01 Long term (current) use of anticoagulants; I48.91 Unspecified atrial fibrillation
CPT/HCPCS: 36415; 80053; 80061; 83036; 85025; 85610

== ENCOUNTER 2020-03-23 03:30 | Outpatient (CLI) | payer MEDICARE, BC, SELFPAY ==
[2020-03-23 09:59] LABS: Prothrombin Time 19.6 sec (9.3-11.0)
[2020-03-23 10:59] LABS: TSH (W/Ref FT4) 0.92 uIU/mL (0.36-3.74)
== END 2020-03-23 03:50 ==
PROVIDERS: Internal Medicine Endocrinology, Diabetes & Metabolism; PCP Internal Medicine; Visit Provider Internal Medicine Cardiovascular Disease
DX: E11.65 Type 2 diabetes mellitus with hyperglycemia (principal); Z79.4 Long term (current) use of insulin; E04.2 Nontoxic multinodular goiter; I48.91 Unspecified atrial fibrillation
CPT/HCPCS: 36415; 84443; 85610

== ENCOUNTER 2020-03-30 01:29 | Outpatient (CLI) | payer MEDICARE, BC, SELFPAY ==
[2020-03-30 10:48] LABS: INR 1.9 (0.9-1.1); Prothrombin Time 18.9 sec (9.3-11.0)
== END 2020-03-30 01:49 ==
PROVIDERS: PCP Internal Medicine; Visit Provider Internal Medicine Cardiovascular Disease
DX: I48.91 Unspecified atrial fibrillation (principal)
CPT/HCPCS: 36415; 85610

== ENCOUNTER 2020-04-06 01:30 | Outpatient (CLI) | payer MEDICARE, BC, SELFPAY ==
[2020-04-06 10:36] LABS: Prothrombin Time 19.7 sec (9.3-11.0)
== END 2020-04-06 01:50 ==
PROVIDERS: PCP Internal Medicine; Visit Provider Internal Medicine Cardiovascular Disease
DX: I48.91 Unspecified atrial fibrillation (principal)
CPT/HCPCS: 36415; 85610

== ENCOUNTER 2020-04-13 01:24 | Outpatient (CLI) | payer MEDICARE, BC, SELFPAY ==
[2020-04-13 10:27] LABS: INR 1.7 (0.9-1.1); Prothrombin Time 17.1 sec (9.3-11.0)
== END 2020-04-13 01:44 ==
PROVIDERS: PCP Internal Medicine; Visit Provider Internal Medicine Cardiovascular Disease
DX: I48.91 Unspecified atrial fibrillation (principal); Z79.01 Long term (current) use of anticoagulants
CPT/HCPCS: 36415; 85610

== ENCOUNTER 2020-04-20 01:52 | Outpatient (CLI) | payer MEDICARE, BC, SELFPAY ==
[2020-04-20 10:53] LABS: INR 1.8 (0.9-1.1); Prothrombin Time 17.6 sec (9.3-11.0)
== END 2020-04-20 02:12 ==
PROVIDERS: PCP Internal Medicine; Visit Provider Internal Medicine Cardiovascular Disease
DX: I48.91 Unspecified atrial fibrillation (principal); Z79.01 Long term (current) use of anticoagulants
CPT/HCPCS: 36415; 85610

== ENCOUNTER 2020-04-27 03:56 | Outpatient (CLI) | payer MEDICARE, BC, SELFPAY ==
[2020-04-27 10:34] LABS: INR 2.1 (0.9-1.1); Prothrombin Time 20.9 sec (9.3-11.0)
== END 2020-04-27 04:16 ==
PROVIDERS: PCP Internal Medicine; Visit Provider Internal Medicine Cardiovascular Disease
DX: I48.91 Unspecified atrial fibrillation (principal)
CPT/HCPCS: 36415; 85610

== ENCOUNTER 2020-05-03 04:42 | Outpatient (CLI) | payer MEDICARE, BC, SELFPAY ==
[2020-05-03 11:09] LABS: Prothrombin Time 19.5 sec (9.3-11.0)
== END 2020-05-03 05:02 ==
PROVIDERS: PCP Internal Medicine; Visit Provider Ophthalmology
DX: I48.91 Unspecified atrial fibrillation (principal); Z79.01 Long term (current) use of anticoagulants
CPT/HCPCS: 36415; 85610

== ENCOUNTER 2020-05-07 01:43 | Outpatient (CLI) | payer MEDICARE, BC, SELFPAY ==
[2020-05-09 09:14] LABS: SARS-CoV-2 RNA Not Detected (NotDetected); SARS-CoV-2 RNA Source Nasal/Nares
== END 2020-05-07 02:03 ==
PROVIDERS: PCP Internal Medicine; Visit Provider Ophthalmology
DX: Z11.59 Encounter for screening for other viral diseases (principal); Z01.818 Encounter for other preprocedural examination
CPT/HCPCS: U0003

== ENCOUNTER 2020-06-01 04:20 | Outpatient (CLI) | payer MEDICARE, BC, SELFPAY ==
[2020-06-01 11:21] LABS: INR 1.6 (0.9-1.1); Prothrombin Time 16.1 sec (9.3-11.0)
== END 2020-06-01 04:40 ==
PROVIDERS: PCP Internal Medicine; Visit Provider Internal Medicine Cardiovascular Disease
DX: I48.91 Unspecified atrial fibrillation (principal); Z79.01 Long term (current) use of anticoagulants
CPT/HCPCS: 36415; 85610

== ENCOUNTER 2020-06-08 02:41 | Outpatient (CLI) | payer MEDICARE, BC, SELFPAY ==
[2020-06-08 10:56] LABS: INR 1.8 (0.9-1.1); Prothrombin Time 17.5 sec (9.3-11.0)
== END 2020-06-08 03:01 ==
PROVIDERS: PCP Internal Medicine; Visit Provider Internal Medicine Cardiovascular Disease
DX: I48.91 Unspecified atrial fibrillation (principal); Z79.01 Long term (current) use of anticoagulants
CPT/HCPCS: 36415; 85610

== ENCOUNTER 2020-06-22 03:21 | Outpatient (CLI) | payer MEDICARE, BC, SELFPAY ==
[2020-06-22 10:21] LABS: INR 1.8 (0.9-1.1); Prothrombin Time 18.1 sec (9.3-11.0)
== END 2020-06-22 03:41 ==
PROVIDERS: PCP Internal Medicine; Visit Provider Internal Medicine Cardiovascular Disease
DX: I48.91 Unspecified atrial fibrillation (principal)
CPT/HCPCS: 36415; 85610

== ENCOUNTER 2020-06-29 03:35 | Outpatient (CLI) | payer MEDICARE, BC, SELFPAY ==
[2020-06-29 10:54] LABS: Prothrombin Time 19.9 sec (9.3-11.0)
== END 2020-06-29 03:55 ==
PROVIDERS: PCP Internal Medicine; Visit Provider Internal Medicine Cardiovascular Disease
DX: I48.91 Unspecified atrial fibrillation (principal); Z79.01 Long term (current) use of anticoagulants
CPT/HCPCS: 36415; 85610

== ENCOUNTER 2020-07-06 02:22 | Outpatient (CLI) | payer MEDICARE, BC, SELFPAY ==
[2020-07-06 11:23] LABS: INR 1.9 (0.9-1.1)
== END 2020-07-06 02:42 ==
PROVIDERS: PCP Internal Medicine; Visit Provider Internal Medicine Cardiovascular Disease
DX: I48.91 Unspecified atrial fibrillation (principal); Z79.01 Long term (current) use of anticoagulants
CPT/HCPCS: 36415; 85610

== ENCOUNTER 2020-07-13 03:38 | Outpatient (CLI) | payer MEDICARE, BC, SELFPAY ==
[2020-07-13 10:42] LABS: Prothrombin Time 20.1 sec (9.3-11.0)
== END 2020-07-13 03:58 ==
PROVIDERS: PCP Internal Medicine; Visit Provider Internal Medicine Cardiovascular Disease
DX: I48.91 Unspecified atrial fibrillation (principal); Z79.01 Long term (current) use of anticoagulants
CPT/HCPCS: 36415; 85610

== ENCOUNTER 2020-07-20 03:45 | Outpatient (CLI) | payer MEDICARE, BC, SELFPAY ==
[2020-07-20 10:22] LABS: INR 1.7 (0.9-1.1); Prothrombin Time 17.3 sec (9.3-11.0)
== END 2020-07-20 04:05 ==
PROVIDERS: PCP Internal Medicine; Visit Provider Internal Medicine Cardiovascular Disease
DX: I48.91 Unspecified atrial fibrillation (principal)
CPT/HCPCS: 36415; 85610

== ENCOUNTER 2020-07-27 03:03 | Outpatient (CLI) | payer MEDICARE, BC, SELFPAY ==
[2020-07-27 11:27] LABS: INR 2.1 (0.9-1.1)
== END 2020-07-27 03:04 | disposition home or self-care (01) ==
LOC: LBO 03:03
PROVIDERS: PCP Internal Medicine; Visit Provider Internal Medicine Cardiovascular Disease
DX: I48.91 Unspecified atrial fibrillation (principal); Z79.01 Long term (current) use of anticoagulants
CPT/HCPCS: 36415; 85610

== ENCOUNTER 2020-08-10 03:18 | Outpatient (CLI) | payer MEDICARE, BC, SELFPAY ==
[2020-08-10 10:18] LABS: INR 2.7 (0.9-1.1); Prothrombin Time 26.5 sec (9.3-11.0)
== END 2020-08-10 03:19 | disposition home or self-care (01) ==
LOC: LBO 03:19
PROVIDERS: PCP Internal Medicine; Visit Provider Internal Medicine Cardiovascular Disease
DX: I48.91 Unspecified atrial fibrillation (principal); Z79.01 Long term (current) use of anticoagulants
CPT/HCPCS: 36415; 85610

== ENCOUNTER 2020-09-01 04:04 | Outpatient (CLI) | payer MEDICARE, BC, SELFPAY ==
[2020-09-01 08:33] LABS: Abs Immature Grans 0.05 10^3/uL (0.0-0.06); Absolute Basophil Count 0.09 10^3/uL (0.0-0.2); Absolute Eosinophil Count 0.36 10^3/uL (0.0-0.7); Absolute Lymphocyte Count 1.35 10^3/uL (1.2-3.4); Absolute Monocyte Count 0.97 10^3/uL (0.1-0.8); Absolute Neutrophil Count 3.97 10^3/uL (1.2-6.7); Basophils % 1.3; Eosinophils % 5.3; HCT 37.5 % (40.0-50.0); HGB 12.6 g/dL (13.5-17.5); Immature Grans % 0.7; Lymphocytes % 19.9; MCHC 33.6 % (32.0-36.0); MCV 89.3 fL (80-95); MPV 9.6 fL (8.0-11.0); Monocytes % 14.3; Neutrophils % 58.5; Nucleated RBC 0 %; Platelet Count 220 10^3/uL (130-400); RDW 12.9 % (11.8-14.1); RDW-SD 41.8 fL; WBC 6.79 10^3/uL (4.4-10.8)
[2020-09-01 08:51] LABS: Hemoglobin A1C 7.6 % (<5.7)
[2020-09-01 09:28] LABS: ALT 35 U/L (16-63); AST 21 U/L (15-37); Albumin 3.9 g/dL (3.4-5.0); Alkaline Phosphatase 45 U/L (46-116); BUN 48 mg/dL (7-18); Bilirubin, Total 0.5 mg/dL (0.2-1.0); CREATININE 1.8 mg/dL (0.70-1.30); Calcium 9.7 mg/dL (8.5-10.1); Calculated LDL 69 mg/dL (<100); Chloride 102 mmol/L (98-107); Cholesterol 150 mg/dL (<200); Estimated GFR 36.97 (mL/min/1.73m2); Glucose 162 mg/dL (74-106); HDL Cholesterol 26 mg/dL (40-60); Potassium 4.3 mmol/L (3.5-5.1); Sodium 138 mmol/L (136-145); Total Protein 7.1 g/dL (6.4-8.2); Triglyceride 278 mg/dL (<150)
[2020-09-02 04:53] LABS: Vitamin D 25 Total 62.1 ng/ml (30-100)
== END 2020-09-01 04:05 | disposition home or self-care (01) ==
LOC: LBO 04:04
PROVIDERS: PCP Internal Medicine; Visit Provider Internal Medicine
DX: I10 Essential (primary) hypertension (principal); E11.42 Type 2 diabetes mellitus with diabetic polyneuropathy; E55.9 Vitamin D deficiency, unspecified
CPT/HCPCS: 36415; 80053; 80061; 82306; 83036; 85025

== ENCOUNTER 2020-09-07 02:48 | Outpatient (CLI) | payer MEDICARE, BC, SELFPAY ==
[2020-09-07 10:37] LABS: INR 2.1 (0.9-1.1); Prothrombin Time 20.9 sec (9.3-11.0)
== END 2020-09-07 02:49 | disposition home or self-care (01) ==
LOC: LBO 02:48
PROVIDERS: PCP Internal Medicine; Visit Provider Internal Medicine Cardiovascular Disease
DX: I48.91 Unspecified atrial fibrillation (principal); Z79.01 Long term (current) use of anticoagulants
CPT/HCPCS: 36415; 85610

== ENCOUNTER 2020-10-07 03:11 | Outpatient (CLI) | payer MEDICARE, BC, SELFPAY ==
[2020-10-07 11:22] LABS: INR 2.4 (0.9-1.1)
== END 2020-10-07 03:12 | disposition home or self-care (01) ==
LOC: LBO 03:11
PROVIDERS: PCP Internal Medicine; Visit Provider Internal Medicine Cardiovascular Disease
DX: I48.91 Unspecified atrial fibrillation (principal); Z79.01 Long term (current) use of anticoagulants
CPT/HCPCS: 36415; 85610

== ENCOUNTER 2020-10-13 03:17 | Outpatient (CLI) | payer MEDICARE, BC, SELFPAY ==
[2020-10-13 08:42] LABS: INR 1.9 (0.9-1.1); Prothrombin Time 19.1 sec (9.3-11.0)
== END 2020-10-13 03:18 | disposition home or self-care (01) ==
LOC: LBO 03:17
PROVIDERS: Internal Medicine Cardiovascular Disease; PCP Internal Medicine; Visit Provider Ophthalmology
DX: I48.91 Unspecified atrial fibrillation (principal); Z79.01 Long term (current) use of anticoagulants
CPT/HCPCS: 36415; 85610

== ENCOUNTER 2020-10-20 03:38 | Outpatient (CLI) | payer MEDICARE, BC, SELFPAY ==
[2020-10-20 12:44] LABS: Prothrombin Time 29.1 sec (9.3-11.0)
== END 2020-10-20 03:39 | disposition home or self-care (01) ==
LOC: LBO 03:38
PROVIDERS: PCP Internal Medicine; Visit Provider Internal Medicine Cardiovascular Disease
DX: I48.91 Unspecified atrial fibrillation (principal); Z79.01 Long term (current) use of anticoagulants
CPT/HCPCS: 36415; 85610

== ENCOUNTER 2020-10-26 02:19 | Outpatient (CLI) | payer MEDICARE, BC, SELFPAY ==
[2020-10-26 10:51] LABS: INR 3.4 (0.9-1.1); Prothrombin Time 32.7 sec (9.3-11.0)
== END 2020-10-26 02:20 | disposition home or self-care (01) ==
LOC: LBO 02:19
PROVIDERS: PCP Internal Medicine; Visit Provider Internal Medicine Cardiovascular Disease
DX: I48.91 Unspecified atrial fibrillation (principal); Z79.01 Long term (current) use of anticoagulants
CPT/HCPCS: 36415; 85610

== ENCOUNTER 2020-11-03 03:09 | Outpatient (CLI) | payer MEDICARE, BC, SELFPAY ==
[2020-11-03 10:55] LABS: INR 2.6 (0.9-1.1); Prothrombin Time 25.2 sec (9.3-11.0)
== END 2020-11-03 03:10 | disposition home or self-care (01) ==
LOC: LBO 03:09
PROVIDERS: PCP Internal Medicine; Visit Provider Internal Medicine Cardiovascular Disease
DX: I48.91 Unspecified atrial fibrillation (principal)
CPT/HCPCS: 36415; 85610

== ENCOUNTER 2020-11-10 02:50 | Outpatient (CLI) | payer MEDICARE, BC, SELFPAY ==
[2020-11-10 10:38] LABS: INR 2.2 (0.9-1.1); Prothrombin Time 21.8 sec (9.3-11.0)
== END 2020-11-10 02:51 | disposition home or self-care (01) ==
LOC: LBO 02:50
PROVIDERS: PCP Internal Medicine; Visit Provider Internal Medicine Cardiovascular Disease
DX: I48.91 Unspecified atrial fibrillation (principal)
CPT/HCPCS: 36415; 85610

== ENCOUNTER 2020-11-18 02:36 | Outpatient (CLI) | payer MEDICARE, BC, SELFPAY | END 2020-11-18 02:37 | disposition home or self-care (01) | LOC: LBO 02:36 | PROVIDERS: PCP Internal Medicine; Visit Provider Internal Medicine Cardiovascular Disease | DX: I48.91 Unspecified atrial fibrillation (principal); Z79.01 Long term (current) use of anticoagulants | CPT/HCPCS: 36415; 85610 ==

== ENCOUNTER 2020-12-02 02:48 | Outpatient (CLI) | payer MEDICARE, BC, SELFPAY ==
[2020-12-02 10:19] LABS: INR 1.6 (0.9-1.1); Prothrombin Time 15.8 sec (9.3-11.0)
== END 2020-12-02 02:49 | disposition home or self-care (01) ==
LOC: LBO 02:48
PROVIDERS: PCP Internal Medicine; Visit Provider Internal Medicine Cardiovascular Disease
DX: I48.91 Unspecified atrial fibrillation (principal); Z79.01 Long term (current) use of anticoagulants
CPT/HCPCS: 36415; 85610

== ENCOUNTER 2020-12-09 02:02 | Outpatient (CLI) | payer MEDICARE, BC, SELFPAY ==
[2020-12-09 10:35] LABS: INR 2.6 (0.9-1.1); Prothrombin Time 25.2 sec (9.3-11.0)
== END 2020-12-09 02:03 | disposition home or self-care (01) ==
LOC: LBO 02:02
PROVIDERS: PCP Internal Medicine; Visit Provider Internal Medicine Cardiovascular Disease
DX: I48.91 Unspecified atrial fibrillation (principal); Z79.01 Long term (current) use of anticoagulants
CPT/HCPCS: 36415; 85610

== ENCOUNTER 2020-12-16 03:46 | Outpatient (CLI) | payer MEDICARE, BC, SELFPAY ==
[2020-12-16 11:10] LABS: INR 2.7 (0.9-1.1); Prothrombin Time 26.6 sec (9.3-11.0)
== END 2020-12-16 03:47 | disposition home or self-care (01) ==
LOC: LBO 03:46
PROVIDERS: PCP Internal Medicine; Visit Provider Internal Medicine Cardiovascular Disease
DX: I48.91 Unspecified atrial fibrillation (principal); Z79.01 Long term (current) use of anticoagulants
CPT/HCPCS: 36415; 85610

== ENCOUNTER 2020-12-23 04:25 | Outpatient (CLI) | payer MEDICARE, BC, SELFPAY ==
[2020-12-23 10:53] LABS: INR 2.7 (0.9-1.1); Prothrombin Time 26.2 sec (9.3-11.0)
== END 2020-12-23 04:26 | disposition home or self-care (01) ==
LOC: LBO 04:25
PROVIDERS: PCP Internal Medicine; Visit Provider Internal Medicine Cardiovascular Disease
DX: I48.91 Unspecified atrial fibrillation (principal)
CPT/HCPCS: 36415; 85610

== ENCOUNTER 2021-01-06 03:38 | Outpatient (CLI) | payer MEDICARE, BC, SELFPAY ==
[2021-01-06 10:36] LABS: INR 2.6 (0.9-1.1); Prothrombin Time 25.7 sec (9.3-11.0)
== END 2021-01-06 03:39 | disposition home or self-care (01) ==
LOC: LBO 03:38
PROVIDERS: PCP Internal Medicine; Visit Provider Internal Medicine Cardiovascular Disease
DX: I48.91 Unspecified atrial fibrillation (principal); Z79.01 Long term (current) use of anticoagulants
CPT/HCPCS: 36415; 85610

== ENCOUNTER 2021-01-20 04:22 | Outpatient (CLI) | payer MEDICARE, BC, SELFPAY ==
[2021-01-20 10:46] LABS: INR 3.7 (0.9-1.1); Prothrombin Time 36.4 sec (9.3-11.0)
== END 2021-01-20 04:23 | disposition home or self-care (01) ==
LOC: LBO 04:22
PROVIDERS: PCP Internal Medicine; Visit Provider Internal Medicine Cardiovascular Disease
DX: I48.91 Unspecified atrial fibrillation (principal); Z79.01 Long term (current) use of anticoagulants
CPT/HCPCS: 36415; 85610

== ENCOUNTER 2021-01-27 04:43 | Outpatient (CLI) | payer MEDICARE, BC, SELFPAY ==
[2021-01-27 10:51] LABS: INR 2.7 (0.9-1.1); Prothrombin Time 26.8 sec (9.3-11.0)
== END 2021-01-27 04:44 | disposition home or self-care (01) ==
PROVIDERS: PCP Internal Medicine; Visit Provider Internal Medicine Cardiovascular Disease
DX: I48.0 Paroxysmal atrial fibrillation (principal)
CPT/HCPCS: 36415; 85610

== ENCOUNTER 2021-02-03 04:29 | Outpatient (CLI) | payer MEDICARE, BC, SELFPAY ==
[2021-02-03 10:25] LABS: INR 2.7 (0.9-1.1); Prothrombin Time 26.2 sec (9.3-11.0)
== END 2021-02-03 04:30 | disposition home or self-care (01) ==
LOC: LBO 04:29
PROVIDERS: PCP Internal Medicine; Visit Provider Internal Medicine Cardiovascular Disease
DX: I48.0 Paroxysmal atrial fibrillation (principal)
CPT/HCPCS: 36415; 85610

== ENCOUNTER 2021-02-10 02:56 | Outpatient (CLI) | payer MEDICARE, BC, SELFPAY ==
[2021-02-10 10:42] LABS: INR 2.9 (0.9-1.1); Prothrombin Time 28.6 sec (9.3-11.0)
== END 2021-02-10 02:57 | disposition home or self-care (01) ==
LOC: LBO 02:56
PROVIDERS: PCP Internal Medicine; Visit Provider Internal Medicine Cardiovascular Disease
DX: I48.0 Paroxysmal atrial fibrillation (principal); Z79.01 Long term (current) use of anticoagulants
CPT/HCPCS: 36415; 85610

== ENCOUNTER 2021-02-17 03:45 | Outpatient (CLI) | payer MEDICARE, BC, SELFPAY ==
[2021-02-17 10:52] LABS: INR 2.6 (0.9-1.1); Prothrombin Time 25.8 sec (9.3-11.0)
== END 2021-02-17 03:46 | disposition home or self-care (01) ==
LOC: LBO 03:45
PROVIDERS: PCP Internal Medicine; Visit Provider Internal Medicine Cardiovascular Disease
DX: I48.0 Paroxysmal atrial fibrillation (principal)
CPT/HCPCS: 36415; 85610

== ENCOUNTER 2021-02-24 03:36 | Outpatient (CLI) | payer MEDICARE, BC, SELFPAY ==
[2021-02-24 11:48] LABS: INR 2.6 (0.9-1.1); Prothrombin Time 25.2 sec (9.3-11.0)
== END 2021-02-24 03:37 | disposition home or self-care (01) ==
LOC: LBO 03:37
PROVIDERS: PCP Internal Medicine; Visit Provider Internal Medicine Cardiovascular Disease
DX: I48.0 Paroxysmal atrial fibrillation (principal); Z79.01 Long term (current) use of anticoagulants
CPT/HCPCS: 36415; 85610

== ENCOUNTER 2021-03-03 02:51 | Outpatient (CLI) | payer MEDICARE, BC, SELFPAY ==
[2021-03-03 10:08] LABS: Abs Immature Grans 0.04 10^3/uL (0.0-0.06); Absolute Basophil Count 0.08 10^3/uL (0.0-0.2); Absolute Eosinophil Count 0.18 10^3/uL (0.0-0.7); Absolute Lymphocyte Count 1.18 10^3/uL (1.2-3.4); Absolute Monocyte Count 0.81 10^3/uL (0.1-0.8); Absolute Neutrophil Count 3.44 10^3/uL (1.2-6.7); Basophils % 1.4; Eosinophils % 3.1; HCT 37.3 % (40.0-50.0); HGB 12.3 g/dL (13.5-17.5); Immature Grans % 0.7; Lymphocytes % 20.6; MCH 29.1 pg (27.0-33.0); MCV 88.2 fL (80-95); MPV 9.9 fL (8.0-11.0); Monocytes % 14.1; Neutrophils % 60.1; Nucleated RBC 0 %; Platelet Count 209 10^3/uL (130-400); RBC 4.23 10^6/uL (4.36-5.78); RDW 13.1 % (11.8-14.1); RDW-SD 42.4 fL; WBC 5.73 10^3/uL (4.4-10.8)
[2021-03-03 10:20] LABS: INR 2.7 (0.9-1.1); Prothrombin Time 26.7 sec (9.3-11.0)
[2021-03-03 11:22] LABS: ALT 38 U/L (16-63); AST 23 U/L (15-37); Albumin 4.3 g/dL (3.4-5.0); Alkaline Phosphatase 48 U/L (46-116); BUN 65 mg/dL (7-18); Bilirubin, Total 0.6 mg/dL (0.2-1.0); CREATININE 2.3 mg/dL (0.70-1.30); Calcium 9.6 mg/dL (8.5-10.1); Calculated LDL 47 mg/dL (<100); Chloride 101 mmol/L (98-107); Cholesterol 144 mg/dL (<200); Estimated GFR 27.78 (mL/min/1.73m2); Glucose 198 mg/dL (74-106); HDL Cholesterol 23 mg/dL (40-60); Sodium 137 mmol/L (136-145); TSH (W/Ref FT4) 1.17 uIU/mL (0.36-3.74); Total Protein 7.4 g/dL (6.4-8.2); Triglyceride 370 mg/dL (<150)
[2021-03-03 22:05] LABS: PSA, Screening 0.2 ng/mL (0.0-6.5)
== END 2021-03-03 02:52 | disposition home or self-care (01) ==
LOC: LBO 02:51
PROVIDERS: PCP Internal Medicine; Visit Provider Internal Medicine Cardiovascular Disease
DX: I48.0 Paroxysmal atrial fibrillation (principal); I10 Essential (primary) hypertension; N18.30 Chronic kidney disease, stage 3 unspecified; E11.21 Type 2 diabetes mellitus with diabetic nephropathy; N40.1 Benign prostatic hyperplasia with lower urinary tract symptoms; R35.0 Frequency of micturition; Z12.5 Encounter for screening for malignant neoplasm of prostate
CPT/HCPCS: 36415; 80053; 80061; 84153; 83036; 84443; 85025; 85610

== ENCOUNTER 2021-03-17 01:52 | Outpatient (CLI) | payer MEDICARE, BC, SELFPAY ==
[2021-03-17 10:23] LABS: INR 3.5 (0.9-1.1)
== END 2021-03-17 01:53 | disposition home or self-care (01) ==
PROVIDERS: PCP Internal Medicine; Visit Provider Internal Medicine Cardiovascular Disease
DX: I48.0 Paroxysmal atrial fibrillation (principal); Z79.01 Long term (current) use of anticoagulants
CPT/HCPCS: 36415; 85610

== ENCOUNTER 2021-03-24 03:59 | Outpatient (CLI) | payer MEDICARE, BC, SELFPAY ==
[2021-03-24 10:44] LABS: INR 3.2 (0.9-1.1); Prothrombin Time 31.4 sec (9.3-11.0)
== END 2021-03-24 04:00 | disposition home or self-care (01) ==
LOC: LBO 03:59
PROVIDERS: PCP Internal Medicine; Visit Provider Internal Medicine Cardiovascular Disease
DX: I48.0 Paroxysmal atrial fibrillation (principal); Z79.01 Long term (current) use of anticoagulants
CPT/HCPCS: 36415; 85610

== ENCOUNTER 2021-03-30 02:41 | Outpatient (CLI) | payer MEDICARE, BC, SELFPAY ==
[2021-03-30 10:45] LABS: INR 2.6 (0.9-1.1); Prothrombin Time 25.7 sec (9.3-11.0)
== END 2021-03-30 02:42 | disposition home or self-care (01) ==
LOC: LBO 02:41
PROVIDERS: Internal Medicine Cardiovascular Disease; PCP Internal Medicine; Visit Provider Internal Medicine Hematology & Oncology
DX: I48.0 Paroxysmal atrial fibrillation (principal)
CPT/HCPCS: 36415; 85610

== ENCOUNTER 2021-04-07 02:43 | Outpatient (CLI) | payer MEDICARE, BC, SELFPAY ==
[2021-04-07 10:52] LABS: INR 2.5 (0.9-1.1); Prothrombin Time 24.2 sec (9.3-11.0)
== END 2021-04-07 02:44 | disposition home or self-care (01) ==
LOC: LBO 02:43
PROVIDERS: PCP Internal Medicine; Visit Provider Internal Medicine Cardiovascular Disease
DX: I48.0 Paroxysmal atrial fibrillation (principal)
CPT/HCPCS: 36415; 85610

== ENCOUNTER 2021-04-20 04:38 | Outpatient (CLI) | payer MEDICARE, BC, SELFPAY ==
[2021-04-20 10:10] LABS: INR 2.4 (0.9-1.1); Prothrombin Time 23.3 sec (9.3-11.0)
== END 2021-04-20 04:39 | disposition home or self-care (01) ==
LOC: LBO 04:39
PROVIDERS: PCP Internal Medicine; Visit Provider Internal Medicine Cardiovascular Disease
DX: I48.0 Paroxysmal atrial fibrillation (principal)
CPT/HCPCS: 36415; 85610

== ENCOUNTER 2021-05-05 02:20 | Outpatient (CLI) | payer MEDICARE, BC, SELFPAY ==
[2021-05-05 10:36] LABS: INR 2.6 (0.9-1.1); Prothrombin Time 25.6 sec (9.3-11.0)
== END 2021-05-05 02:21 | disposition home or self-care (01) ==
LOC: LBO 02:20
PROVIDERS: PCP Internal Medicine; Visit Provider Internal Medicine Cardiovascular Disease
DX: I48.0 Paroxysmal atrial fibrillation (principal); Z79.01 Long term (current) use of anticoagulants
CPT/HCPCS: 36415; 85610

== ENCOUNTER 2021-05-17 03:53 | Outpatient (CLI) | payer MEDICARE, BC, SELFPAY ==
[2021-05-17 10:40] LABS: INR 2.7 (0.9-1.1); Prothrombin Time 26.2 sec (9.3-11.0)
== END 2021-05-17 03:54 | disposition home or self-care (01) ==
LOC: LBO 03:53
PROVIDERS: PCP Internal Medicine; Visit Provider Internal Medicine Cardiovascular Disease
DX: I48.0 Paroxysmal atrial fibrillation (principal)
CPT/HCPCS: 36415; 85610

== ENCOUNTER 2021-06-02 02:45 | Outpatient (CLI) | payer MEDICARE, BC, SELFPAY ==
[2021-06-02 10:52] LABS: INR 2.5 (0.9-1.1); Prothrombin Time 24.8 sec (9.3-11.0)
== END 2021-06-02 02:46 | disposition home or self-care (01) ==
LOC: LBO 02:45
PROVIDERS: PCP Internal Medicine; Visit Provider Internal Medicine Cardiovascular Disease
DX: I48.0 Paroxysmal atrial fibrillation (principal)
CPT/HCPCS: 36415; 85610

== ENCOUNTER 2021-06-30 04:02 | Outpatient (CLI) | payer MEDICARE, BC, SELFPAY ==
[2021-06-30 10:28] LABS: INR 3.7 (0.9-1.1); Prothrombin Time 36.3 sec (9.3-11.0)
== END 2021-06-30 04:03 | disposition home or self-care (01) ==
LOC: LBO 04:02
PROVIDERS: PCP Internal Medicine; Visit Provider Internal Medicine Cardiovascular Disease
DX: I48.0 Paroxysmal atrial fibrillation (principal)
CPT/HCPCS: 36415; 85610

== ENCOUNTER 2021-07-07 04:16 | Outpatient (CLI) | payer MEDICARE, BC, SELFPAY ==
[2021-07-07 11:06] LABS: INR 1.6 (0.9-1.1); Prothrombin Time 15.9 sec (9.3-11.0)
== END 2021-07-07 04:17 | disposition home or self-care (01) ==
LOC: LBO 04:16
PROVIDERS: PCP Internal Medicine; Visit Provider Internal Medicine Cardiovascular Disease
DX: I48.0 Paroxysmal atrial fibrillation (principal)
CPT/HCPCS: 36415; 85610

== ENCOUNTER 2021-07-14 02:04 | Outpatient (CLI) | payer MEDICARE, BC, SELFPAY ==
[2021-07-14 10:53] LABS: INR 3.6 (0.9-1.1); Prothrombin Time 34.8 sec (9.3-11.0)
== END 2021-07-14 02:05 | disposition home or self-care (01) ==
LOC: LBO 02:04
PROVIDERS: PCP Internal Medicine; Visit Provider Internal Medicine Cardiovascular Disease
DX: I48.0 Paroxysmal atrial fibrillation (principal)
CPT/HCPCS: 36415; 85610

== ENCOUNTER 2021-07-21 03:27 | Outpatient (CLI) | payer MEDICARE, BC, SELFPAY ==
[2021-07-21 11:19] LABS: INR 2.7 (0.9-1.1); Prothrombin Time 26.3 sec (9.3-11.0)
== END 2021-07-21 03:28 | disposition home or self-care (01) ==
LOC: LBO 03:27
PROVIDERS: PCP Internal Medicine; Visit Provider Internal Medicine Cardiovascular Disease
DX: I48.0 Paroxysmal atrial fibrillation (principal)
CPT/HCPCS: 36415; 85610

== ENCOUNTER 2021-08-04 02:44 | Outpatient (CLI) | payer MEDICARE, BC, SELFPAY ==
[2021-08-04 10:53] LABS: INR 3.5 (0.9-1.1); Prothrombin Time 34.2 sec (9.3-11.0)
== END 2021-08-04 02:45 | disposition home or self-care (01) ==
LOC: LBO 02:44
PROVIDERS: PCP Internal Medicine; Visit Provider Internal Medicine Cardiovascular Disease
DX: I48.0 Paroxysmal atrial fibrillation (principal)
CPT/HCPCS: 36415; 85610

== ENCOUNTER 2021-08-11 02:53 | Outpatient (CLI) | payer MEDICARE, BC, SELFPAY ==
[2021-08-11 10:48] LABS: INR 3.7 (0.9-1.1); Prothrombin Time 35.9 sec (9.3-11.0)
== END 2021-08-11 02:54 | disposition home or self-care (01) ==
LOC: LBO 02:53
PROVIDERS: PCP Internal Medicine; Visit Provider Internal Medicine Cardiovascular Disease
DX: I48.0 Paroxysmal atrial fibrillation (principal)
CPT/HCPCS: 36415; 85610

== ENCOUNTER 2021-08-18 01:48 | Outpatient (CLI) | payer MEDICARE, BC, SELFPAY ==
[2021-08-18 10:54] LABS: INR 2.9 (0.9-1.1); Prothrombin Time 28.6 sec (9.3-11.0)
== END 2021-08-18 01:49 | disposition home or self-care (01) ==
LOC: LBO 01:48
PROVIDERS: PCP Internal Medicine; Visit Provider Internal Medicine Cardiovascular Disease
DX: I48.0 Paroxysmal atrial fibrillation (principal)
CPT/HCPCS: 36415; 85610

== ENCOUNTER 2021-08-25 04:20 | Outpatient (CLI) | payer MEDICARE, BC, SELFPAY ==
[2021-08-25 11:14] LABS: INR 2.4 (0.9-1.1)
[2021-08-25 12:02] LABS: Anion Gap 12.2 mmol/L (3-11); BUN 50 mg/dL (7-18); CO2 25.8 mmol/L (21.0-32.0); CREATININE 2.2 mg/dL (0.70-1.30); Calcium 9.8 mg/dL (8.5-10.1); Chloride 104 mmol/L (98-107); Estimated GFR 29.25 (mL/min/1.73m2); Glucose 155 mg/dL (74-106); NT-proBNP 1865 pg/mL (<300); Potassium 4.5 mmol/L (3.5-5.1); Sodium 142 mmol/L (136-145)
== END 2021-08-25 04:21 | disposition home or self-care (01) ==
LOC: LBO 04:21
PROVIDERS: PCP Internal Medicine; Visit Provider Internal Medicine Cardiovascular Disease
DX: R06.00 Dyspnea, unspecified (principal); I48.0 Paroxysmal atrial fibrillation
CPT/HCPCS: 36415; 80048; 83880; 85610

== ENCOUNTER 2021-09-01 02:27 | Outpatient (CLI) | payer MEDICARE, BC, SELFPAY ==
[2021-09-01 10:43] LABS: Prothrombin Time 20.2 sec (9.3-11.0)
== END 2021-09-01 02:28 | disposition home or self-care (01) ==
LOC: LBO 02:27
PROVIDERS: PCP Internal Medicine; Visit Provider Internal Medicine Cardiovascular Disease
DX: I48.0 Paroxysmal atrial fibrillation (principal)
CPT/HCPCS: 36415; 85610

== ENCOUNTER 2021-09-15 03:36 | Outpatient (CLI) | payer MEDICARE, BC, SELFPAY ==
[2021-09-15 10:53] LABS: INR 1.8 (0.9-1.1); Prothrombin Time 17.7 sec (9.3-11.0)
== END 2021-09-15 03:37 | disposition home or self-care (01) ==
LOC: LBO 03:36
PROVIDERS: PCP Internal Medicine; Visit Provider Internal Medicine Cardiovascular Disease
DX: I48.0 Paroxysmal atrial fibrillation (principal)
CPT/HCPCS: 36415; 85610

== ENCOUNTER 2021-09-22 04:08 | Outpatient (CLI) | payer MEDICARE, BC, SELFPAY ==
[2021-09-22 12:30] LABS: INR 2.1 (0.9-1.1); Prothrombin Time 20.3 sec (9.3-11.0)
== END 2021-09-22 04:09 | disposition home or self-care (01) ==
LOC: LBO 04:08
PROVIDERS: PCP Internal Medicine; Visit Provider Internal Medicine Cardiovascular Disease
DX: I48.0 Paroxysmal atrial fibrillation (principal)
CPT/HCPCS: 36415; 85610

== ENCOUNTER 2021-09-29 02:05 | Outpatient (CLI) | payer MEDICARE, BC, SELFPAY ==
[2021-09-29 11:31] LABS: Prothrombin Time 19.5 sec (9.3-11.0)
== END 2021-09-29 02:06 | disposition home or self-care (01) ==
LOC: LBO 02:05
PROVIDERS: PCP Internal Medicine; Visit Provider Internal Medicine Cardiovascular Disease
DX: I48.0 Paroxysmal atrial fibrillation (principal); Z79.01 Long term (current) use of anticoagulants
CPT/HCPCS: 36415; 85610

== ENCOUNTER 2021-10-12 03:02 | Outpatient (CLI) | payer MEDICARE, BC, SELFPAY ==
[2021-10-12 12:26] LABS: Prothrombin Time 19.7 sec (9.3-11.0)
== END 2021-10-12 03:03 | disposition home or self-care (01) ==
LOC: LBO 03:03
PROVIDERS: PCP Internal Medicine; Visit Provider Internal Medicine Cardiovascular Disease
DX: I48.0 Paroxysmal atrial fibrillation (principal)
CPT/HCPCS: 36415; 85610

== ENCOUNTER 2021-10-26 01:20 | Outpatient (CLI) | payer MEDICARE, BC, SELFPAY ==
[2021-10-26 11:02] LABS: INR 1.7 (0.9-1.1); Prothrombin Time 17.2 sec (9.3-11.0)
== END 2021-10-26 01:21 | disposition home or self-care (01) ==
LOC: LBO 01:20
PROVIDERS: PCP Internal Medicine; Visit Provider Internal Medicine Cardiovascular Disease
DX: I48.0 Paroxysmal atrial fibrillation (principal); Z79.01 Long term (current) use of anticoagulants
CPT/HCPCS: 36415; 85610

== ENCOUNTER 2021-11-02 01:43 | Outpatient (CLI) | payer MEDICARE, BC, SELFPAY ==
[2021-11-02 12:02] LABS: Prothrombin Time 19.5 sec (9.3-11.0)
== END 2021-11-02 01:44 | disposition home or self-care (01) ==
LOC: LBO 01:43
PROVIDERS: PCP Internal Medicine; Visit Provider Internal Medicine Cardiovascular Disease
DX: I48.0 Paroxysmal atrial fibrillation (principal); Z79.01 Long term (current) use of anticoagulants
CPT/HCPCS: 36415; 85610

== ENCOUNTER 2021-11-16 04:17 | Outpatient (CLI) | payer MEDICARE, BC, SELFPAY ==
[2021-11-16 10:16] LABS: INR 1.5 (0.9-1.1)
== END 2021-11-16 04:18 | disposition home or self-care (01) ==
LOC: LBO 04:17
PROVIDERS: PCP Internal Medicine; Visit Provider Internal Medicine Cardiovascular Disease
DX: I48.0 Paroxysmal atrial fibrillation (principal); Z79.01 Long term (current) use of anticoagulants
CPT/HCPCS: 36415; 85610

== ENCOUNTER 2021-11-23 04:09 | Outpatient (CLI) | payer MEDICARE, BC, SELFPAY ==
[2021-11-23 11:27] LABS: INR 1.7 (0.9-1.1); Prothrombin Time 17.2 sec (9.3-11.0)
== END 2021-11-23 04:10 | disposition home or self-care (01) ==
LOC: LBO 04:09
PROVIDERS: PCP Internal Medicine; Visit Provider Internal Medicine Cardiovascular Disease
DX: I48.0 Paroxysmal atrial fibrillation (principal)
CPT/HCPCS: 36415; 85610

== ENCOUNTER 2021-11-30 03:55 | Outpatient (CLI) | payer MEDICARE, BC, SELFPAY ==
[2021-11-30 10:58] LABS: INR 1.8 (0.9-1.1); Prothrombin Time 17.5 sec (9.3-11.0)
== END 2021-11-30 03:56 | disposition home or self-care (01) ==
LOC: LBO 03:55
PROVIDERS: PCP Internal Medicine; Visit Provider Internal Medicine Cardiovascular Disease
DX: I48.0 Paroxysmal atrial fibrillation (principal)
CPT/HCPCS: 36415; 85610

== ENCOUNTER 2021-12-07 02:13 | Outpatient (CLI) | payer MEDICARE, BC, SELFPAY ==
[2021-12-07 11:28] LABS: INR 2.9 (0.9-1.1); Prothrombin Time 26.9 sec (9.3-11.0)
== END 2021-12-07 02:14 | disposition home or self-care (01) ==
LOC: LBO 02:13
PROVIDERS: PCP Internal Medicine; Visit Provider Internal Medicine Cardiovascular Disease
DX: I48.0 Paroxysmal atrial fibrillation (principal); Z79.899 Other long term (current) drug therapy
CPT/HCPCS: 36415; 85610

== ENCOUNTER 2021-12-14 02:06 | Outpatient (CLI) | payer MEDICARE, BC, SELFPAY ==
[2021-12-14 10:32] LABS: INR 2.3 (0.9-1.1)
== END 2021-12-14 02:07 | disposition home or self-care (01) ==
LOC: LBO 02:06
PROVIDERS: PCP Internal Medicine; Visit Provider Internal Medicine Cardiovascular Disease
DX: I48.0 Paroxysmal atrial fibrillation (principal); Z79.01 Long term (current) use of anticoagulants
CPT/HCPCS: 36415; 85610

== ENCOUNTER 2021-12-21 01:56 | Outpatient (CLI) | payer MEDICARE, BC, SELFPAY ==
[2021-12-21 10:43] LABS: INR 2.1 (0.9-1.1); Prothrombin Time 19.9 sec (9.3-11.0)
== END 2021-12-21 01:57 | disposition home or self-care (01) ==
LOC: LBO 01:56
PROVIDERS: PCP Internal Medicine; Visit Provider Internal Medicine Cardiovascular Disease
DX: I48.0 Paroxysmal atrial fibrillation (principal); Z79.01 Long term (current) use of anticoagulants
CPT/HCPCS: 36415; 85610

== ENCOUNTER 2022-01-04 03:22 | Outpatient (CLI) | payer MEDICARE, BC, SELFPAY ==
[2022-01-04 11:18] LABS: INR 2.6 (0.9-1.1)
== END 2022-01-04 03:23 | disposition home or self-care (01) ==
LOC: LBO 03:22
PROVIDERS: PCP Internal Medicine; Visit Provider Internal Medicine Cardiovascular Disease
DX: I48.0 Paroxysmal atrial fibrillation (principal); Z79.01 Long term (current) use of anticoagulants
CPT/HCPCS: 36415; 85610

== ENCOUNTER 2022-01-25 03:16 | Outpatient (CLI) | payer MEDICARE, BC, SELFPAY ==
[2022-01-25 10:56] LABS: INR 3.2 (0.9-1.1); Prothrombin Time 29.7 sec (9.3-11.0)
== END 2022-01-25 03:17 | disposition home or self-care (01) ==
LOC: LBO 03:18
PROVIDERS: PCP Internal Medicine; Visit Provider Internal Medicine Cardiovascular Disease
DX: I48.0 Paroxysmal atrial fibrillation (principal); Z79.01 Long term (current) use of anticoagulants
CPT/HCPCS: 36415; 85610

== ENCOUNTER 2022-02-01 03:13 | Outpatient (CLI) | payer MEDICARE, BC, SELFPAY ==
[2022-02-01 10:44] LABS: INR 2.5 (0.9-1.1); Prothrombin Time 23.4 sec (9.3-11.0)
== END 2022-02-01 03:14 | disposition home or self-care (01) ==
LOC: LBO 03:14
PROVIDERS: PCP Internal Medicine; Visit Provider Internal Medicine Cardiovascular Disease
DX: I48.0 Paroxysmal atrial fibrillation (principal)
CPT/HCPCS: 36415; 85610

== ENCOUNTER 2022-02-08 02:44 | Outpatient (CLI) | payer MEDICARE, BC, SELFPAY ==
[2022-02-08 10:51] LABS: Prothrombin Time 24.2 sec (9.3-11.0)
[2022-02-08 10:53] LABS: INR 2.5 (0.9-1.1)
== END 2022-02-08 02:45 | disposition home or self-care (01) ==
LOC: LBO 02:44
PROVIDERS: PCP Internal Medicine; Visit Provider Internal Medicine Cardiovascular Disease
DX: I48.19 Other persistent atrial fibrillation (principal)
CPT/HCPCS: 36415; 85610

== ENCOUNTER 2022-02-22 02:43 | Outpatient (CLI) | payer MEDICARE, BC, SELFPAY ==
[2022-02-22 11:07] LABS: INR 3.4 (0.9-1.1); Prothrombin Time 31.3 sec (9.3-11.0)
== END 2022-02-22 02:44 | disposition home or self-care (01) ==
LOC: LBO 02:44
PROVIDERS: PCP Internal Medicine; Visit Provider Internal Medicine Cardiovascular Disease
DX: I48.0 Paroxysmal atrial fibrillation (principal); Z79.01 Long term (current) use of anticoagulants
CPT/HCPCS: 36415; 85610

== ENCOUNTER 2022-03-01 04:27 | Outpatient (CLI) | payer MEDICARE, BC, SELFPAY ==
[2022-03-01 10:44] LABS: INR 2.9 (0.9-1.1); Prothrombin Time 26.9 sec (9.3-11.0)
== END 2022-03-01 04:28 | disposition home or self-care (01) ==
LOC: LBO 04:27
PROVIDERS: PCP Internal Medicine; Visit Provider Internal Medicine Cardiovascular Disease
DX: I48.19 Other persistent atrial fibrillation (principal)
CPT/HCPCS: 36415; 85610

== ENCOUNTER 2022-03-15 02:58 | Outpatient (CLI) | payer MEDICARE, BC, SELFPAY ==
[2022-03-15 11:02] LABS: INR 3.8 (0.9-1.1); Prothrombin Time 35.4 sec (9.3-11.0)
== END 2022-03-15 02:59 | disposition home or self-care (01) ==
LOC: LBO 02:58
PROVIDERS: PCP Internal Medicine; Visit Provider Internal Medicine Cardiovascular Disease
DX: I48.19 Other persistent atrial fibrillation (principal)
CPT/HCPCS: 36415; 85610

== ENCOUNTER 2022-03-22 03:24 | Outpatient (CLI) | payer MEDICARE, BC, SELFPAY ==
[2022-03-22 11:14] LABS: INR 2.3 (0.9-1.1); Prothrombin Time 21.9 sec (9.3-11.0)
== END 2022-03-22 03:25 | disposition home or self-care (01) ==
LOC: LBO 03:24
PROVIDERS: PCP Internal Medicine; Visit Provider Internal Medicine Cardiovascular Disease
DX: I48.19 Other persistent atrial fibrillation (principal)
CPT/HCPCS: 36415; 85610

== ENCOUNTER 2022-03-29 12:11 | Outpatient (CLI) | payer MEDICARE, BC, SELFPAY ==
[2022-03-29 11:14] LABS: INR 2.3 (0.9-1.1); Prothrombin Time 21.8 sec (9.3-11.0)
== END 2022-03-29 12:12 | disposition home or self-care (01) ==
LOC: LBO 12:13
PROVIDERS: PCP Internal Medicine; Visit Provider Internal Medicine Cardiovascular Disease
DX: I48.19 Other persistent atrial fibrillation (principal)
CPT/HCPCS: 36415; 85610

== ENCOUNTER 2022-04-26 04:04 | Outpatient (CLI) | payer MEDICARE, BC, SELFPAY ==
[2022-04-26 10:51] LABS: INR 2.3 (0.9-1.1); Prothrombin Time 22.1 sec (9.3-11.0)
== END 2022-04-26 04:05 | disposition home or self-care (01) ==
LOC: LBO 04:04
PROVIDERS: PCP Internal Medicine; Visit Provider Internal Medicine Cardiovascular Disease
DX: I48.19 Other persistent atrial fibrillation (principal)
CPT/HCPCS: 36415; 85610

== ENCOUNTER 2022-05-24 03:42 | Outpatient (CLI) | payer MEDICARE, BC, SELFPAY ==
[2022-05-24 10:35] LABS: INR 2.7 (0.9-1.1); Prothrombin Time 25.2 sec (9.3-11.0)
== END 2022-05-24 03:43 | disposition home or self-care (01) ==
LOC: LBO 03:42
PROVIDERS: PCP Internal Medicine; Visit Provider Internal Medicine Cardiovascular Disease
DX: I48.19 Other persistent atrial fibrillation (principal); Z79.01 Long term (current) use of anticoagulants
CPT/HCPCS: 36415; 85610

== ENCOUNTER 2022-06-21 02:25 | Outpatient (CLI) | payer MEDICARE, BC, SELFPAY ==
[2022-06-21 10:35] LABS: INR 2.6 (0.9-1.1); Prothrombin Time 24.8 sec (9.3-11.0)
== END 2022-06-21 02:26 | disposition home or self-care (01) ==
LOC: LBO 02:25
PROVIDERS: PCP Internal Medicine; Visit Provider Internal Medicine Cardiovascular Disease
DX: I48.19 Other persistent atrial fibrillation (principal); Z79.01 Long term (current) use of anticoagulants
CPT/HCPCS: 36415; 85610

== ENCOUNTER 2022-07-26 04:21 | Outpatient (CLI) | payer MEDICARE, BC, SELFPAY ==
[2022-07-26 10:39] LABS: Prothrombin Time 28.6 sec (9.3-11.0)
== END 2022-07-26 04:22 | disposition home or self-care (01) ==
LOC: LBO 04:22
PROVIDERS: PCP Internal Medicine; Visit Provider Internal Medicine Cardiovascular Disease
DX: I48.19 Other persistent atrial fibrillation (principal)
CPT/HCPCS: 36415; 85610

== ENCOUNTER 2022-08-23 02:52 | Outpatient (CLI) | payer MEDICARE, BC, SELFPAY ==
[2022-08-23 10:31] LABS: INR 2.3 (0.9-1.1); Prothrombin Time 23.3 sec (9.3-11.0)
== END 2022-08-23 02:53 | disposition home or self-care (01) ==
PROVIDERS: PCP Internal Medicine; Visit Provider Internal Medicine Cardiovascular Disease
DX: I48.19 Other persistent atrial fibrillation (principal)
CPT/HCPCS: 36415; 85610

== ENCOUNTER 2022-09-13 03:17 | Outpatient (CLI) | payer MEDICARE, BC, SELFPAY ==
[2022-09-13 10:51] LABS: INR 2.4 (0.9-1.1); Prothrombin Time 24.4 sec (9.3-11.0)
== END 2022-09-13 03:18 | disposition home or self-care (01) ==
LOC: LBO 03:17
PROVIDERS: PCP Internal Medicine; Visit Provider Internal Medicine Cardiovascular Disease
DX: I48.19 Other persistent atrial fibrillation (principal); Z79.01 Long term (current) use of anticoagulants
CPT/HCPCS: 36415; 85610

== ENCOUNTER 2022-10-11 02:56 | Outpatient (CLI) | payer MEDICARE, BC, SELFPAY ==
[2022-10-11 10:41] LABS: Bilirubin Negative (Negative); Blood Negative (Negative); Clarity Clear (Clear); Glucose Negative (Negative); Ketones Negative (Negative); Leukocyte Esterase Negative (Negative); Nitrite Negative (Negative); Urobilinogen 0.2 mg/dL (Up to 0.2)
[2022-10-11 10:50] LABS: Prothrombin Time 20.7 sec (9.3-11.0)
[2022-10-11 11:35] LABS: ALT 34 U/L (16-63); AST 12 U/L (15-37); Albumin 3.7 g/dL (3.4-5.0); Alkaline Phosphatase 53 U/L (46-116); Anion Gap 5.6 mmol/L (3-11); BUN 49 mg/dL (7-18); Bilirubin, Total 0.6 mg/dL (0.2-1.0); CO2 31.4 mmol/L (21.0-32.0); Calcium 9.6 mg/dL (8.5-10.1); Chloride 100 mmol/L (98-107); Cholesterol 163 mg/dL (<200); Estimated GFR 33.74 (mL/min/1.73m2); Glucose 179 mg/dL (74-106); HDL Cholesterol 22 mg/dL (40-60); Potassium 3.8 mmol/L (3.5-5.1); Sodium 137 mmol/L (136-145); TSH (W/Ref FT4) 1.68 uIU/mL (0.36-3.74); Total Protein 7.8 g/dL (6.4-8.2); Triglyceride 702 mg/dL (<150)
[2022-10-11 12:03] LABS: LDL CHOLESTEROL 43 mg/dL (<100)
[2022-10-11 13:04] LABS: Vitamin D 25 Total 88.8 ng/mL (30-100)
[2022-10-11 19:14] LABS: PSA, Screening 0.2 ng/mL (<=6.5)
== END 2022-10-11 02:57 | disposition home or self-care (01) ==
LOC: LBO 02:56
PROVIDERS: PCP Internal Medicine; Visit Provider Internal Medicine Cardiovascular Disease
DX: E55.9 Vitamin D deficiency, unspecified (principal); E04.2 Nontoxic multinodular goiter; E11.69 Type 2 diabetes mellitus with other specified complication; E78.5 Hyperlipidemia, unspecified; I48.19 Other persistent atrial fibrillation; Z12.5 Encounter for screening for malignant neoplasm of prostate; Z79.01 Long term (current) use of anticoagulants
CPT/HCPCS: 36415; 80053; 80061; 82306; 83721; 84153; 81003; 84443; 85610

== ENCOUNTER 2022-11-08 03:25 | Outpatient (CLI) | payer MEDICARE, BC, SELFPAY ==
[2022-11-08 11:01] LABS: INR 2.5 (0.9-1.1); Prothrombin Time 25.4 sec (9.3-11.0)
== END 2022-11-08 03:26 | disposition home or self-care (01) ==
PROVIDERS: PCP Internal Medicine; Visit Provider Internal Medicine Cardiovascular Disease
DX: I48.19 Other persistent atrial fibrillation (principal); Z79.01 Long term (current) use of anticoagulants
CPT/HCPCS: 36415; 85610

== ENCOUNTER 2022-12-06 03:37 | Outpatient (CLI) | payer MEDICARE, BC, SELFPAY ==
[2022-12-06 11:19] LABS: INR 2.8 (0.9-1.1); Prothrombin Time 28.6 sec (9.3-11.0)
== END 2022-12-06 03:38 | disposition home or self-care (01) ==
LOC: LBO 03:37
PROVIDERS: PCP Internal Medicine; Visit Provider Internal Medicine Cardiovascular Disease
DX: I48.19 Other persistent atrial fibrillation (principal); Z79.01 Long term (current) use of anticoagulants
CPT/HCPCS: 36415; 85610

== ENCOUNTER 2023-01-03 02:43 | Outpatient (CLI) | payer MEDICARE, BC, SELFPAY ==
[2023-01-03 10:19] LABS: INR 2.9 (0.9-1.1)
== END 2023-01-03 02:44 | disposition home or self-care (01) ==
LOC: LBO 02:43
PROVIDERS: PCP Internal Medicine; Visit Provider Internal Medicine Cardiovascular Disease
DX: I48.19 Other persistent atrial fibrillation (principal); Z79.01 Long term (current) use of anticoagulants
CPT/HCPCS: 36415; 85610

== ENCOUNTER 2023-01-31 02:40 | Outpatient (CLI) | payer MEDICARE, BC, SELFPAY ==
[2023-01-31 11:20] LABS: INR 2.8 (0.9-1.1); Prothrombin Time 28.6 sec (9.3-11.0)
== END 2023-01-31 02:41 | disposition home or self-care (01) ==
PROVIDERS: Internal Medicine Cardiovascular Disease; PCP Internal Medicine; Visit Provider Internal Medicine
DX: I48.19 Other persistent atrial fibrillation
CPT/HCPCS: 36415; 82306; 85610

== ENCOUNTER 2023-02-28 04:05 | Outpatient (CLI) | payer MEDICARE, BC, SELFPAY ==
[2023-02-28 10:30] LABS: INR 2.1 (0.9-1.1); Prothrombin Time 21.6 sec (9.3-11.0)
[2023-02-28 11:59] LABS: Vitamin D 25 Total 75.1 ng/mL (30-100)
== END 2023-02-28 04:06 | disposition home or self-care (01) ==
LOC: LBO 04:05
PROVIDERS: PCP Internal Medicine; Visit Provider Internal Medicine Cardiovascular Disease
DX: E55.9 Vitamin D deficiency, unspecified (principal); I48.19 Other persistent atrial fibrillation; Z79.01 Long term (current) use of anticoagulants
CPT/HCPCS: 36415; 82306; 85610

== ENCOUNTER 2023-03-28 03:22 | Outpatient (CLI) | payer MEDICARE, BC, SELFPAY ==
[2023-03-28 10:40] LABS: INR 2.4 (0.9-1.1)
== END 2023-03-28 03:23 | disposition home or self-care (01) ==
PROVIDERS: PCP Internal Medicine; Visit Provider Internal Medicine Cardiovascular Disease
DX: I48.0 Paroxysmal atrial fibrillation (principal)
CPT/HCPCS: 36415; 85610

== ENCOUNTER 2023-04-25 05:12 | Outpatient (CLI) | payer MEDICARE, BC, SELFPAY ==
[2023-04-25 10:35] LABS: INR 2.4 (0.9-1.1); Prothrombin Time 22.3 sec (9.1-11.1)
== END 2023-04-25 05:13 | disposition home or self-care (01) ==
LOC: LBO 05:12
PROVIDERS: PCP Internal Medicine; Visit Provider Internal Medicine Cardiovascular Disease
DX: I48.19 Other persistent atrial fibrillation (principal)
CPT/HCPCS: 36415; 85610

== ENCOUNTER 2023-05-23 03:12 | Outpatient (CLI) | payer MEDICARE, BC, SELFPAY ==
[2023-05-23 10:38] LABS: INR 3.4 (0.9-1.1); Prothrombin Time 30.8 sec (9.1-11.1)
== END 2023-05-23 03:13 | disposition home or self-care (01) ==
LOC: LBO 03:12
PROVIDERS: PCP Internal Medicine; Visit Provider Internal Medicine Cardiovascular Disease
DX: I48.19 Other persistent atrial fibrillation (principal)
CPT/HCPCS: 36415; 85610

== ENCOUNTER 2023-05-30 02:54 | Outpatient (CLI) | payer MEDICARE, BC, SELFPAY ==
[2023-05-30 11:01] LABS: INR 2.9 (0.9-1.1); Prothrombin Time 26.6 sec (9.1-11.1)
== END 2023-05-30 02:55 | disposition home or self-care (01) ==
LOC: LBO 02:55
PROVIDERS: PCP Internal Medicine; Visit Provider Internal Medicine Cardiovascular Disease
DX: I48.19 Other persistent atrial fibrillation (principal)
CPT/HCPCS: 36415; 85610

== ENCOUNTER 2023-06-06 04:21 | Outpatient (CLI) | payer MEDICARE, BC, SELFPAY ==
[2023-06-06 10:36] LABS: Prothrombin Time 27.4 sec (9.1-11.1)
== END 2023-06-06 04:22 | disposition home or self-care (01) ==
LOC: LBO 04:21
PROVIDERS: PCP Internal Medicine; Visit Provider Internal Medicine Cardiovascular Disease
DX: I48.19 Other persistent atrial fibrillation (principal); Z79.01 Long term (current) use of anticoagulants
CPT/HCPCS: 36415; 85610

== ENCOUNTER 2023-06-13 04:44 | Outpatient (CLI) | payer MEDICARE, BC, SELFPAY ==
[2023-06-13 10:18] LABS: INR 3.1 (0.9-1.1); Prothrombin Time 28.4 sec (9.1-11.1)
== END 2023-06-13 04:45 | disposition home or self-care (01) ==
LOC: LBO 04:44
PROVIDERS: PCP Internal Medicine; Visit Provider Internal Medicine Cardiovascular Disease
DX: I48.19 Other persistent atrial fibrillation (principal); Z79.01 Long term (current) use of anticoagulants
CPT/HCPCS: 36415; 85610

== ENCOUNTER 2023-06-20 01:27 | Outpatient (CLI) | payer MEDICARE, BC, SELFPAY ==
[2023-06-20 11:11] LABS: INR 3.6 (0.9-1.1); Prothrombin Time 32.3 sec (9.1-11.1)
== END 2023-06-20 01:28 | disposition home or self-care (01) ==
LOC: LBO 01:27
PROVIDERS: PCP Internal Medicine; Visit Provider Internal Medicine Cardiovascular Disease
DX: I48.19 Other persistent atrial fibrillation (principal); Z79.01 Long term (current) use of anticoagulants
CPT/HCPCS: 36415; 85610

== ENCOUNTER 2023-06-27 04:28 | Outpatient (CLI) | payer MEDICARE, BC, SELFPAY ==
[2023-06-27 11:12] LABS: INR 2.4 (0.9-1.1); Prothrombin Time 22.2 sec (9.1-11.1)
== END 2023-06-27 04:29 | disposition home or self-care (01) ==
LOC: LBO 04:28
PROVIDERS: PCP Internal Medicine; Visit Provider Internal Medicine Cardiovascular Disease
DX: I48.19 Other persistent atrial fibrillation (principal); Z79.01 Long term (current) use of anticoagulants
CPT/HCPCS: 36415; 85610

== ENCOUNTER 2023-07-04 04:12 | Outpatient (CLI) | payer MEDICARE, BC, SELFPAY ==
[2023-07-04 11:35] LABS: INR 1.9 (0.9-1.1)
== END 2023-07-04 04:13 | disposition home or self-care (01) ==
LOC: LBO 04:12
PROVIDERS: PCP Internal Medicine; Visit Provider Internal Medicine Cardiovascular Disease
DX: I48.19 Other persistent atrial fibrillation (principal)
CPT/HCPCS: 36415; 85610

== ENCOUNTER 2023-07-11 02:43 | Outpatient (CLI) | payer MEDICARE, BC, SELFPAY ==
[2023-07-11 10:43] LABS: INR 2.2 (0.9-1.1)
== END 2023-07-11 02:44 | disposition home or self-care (01) ==
LOC: LBO 02:43
PROVIDERS: PCP Internal Medicine; Visit Provider Internal Medicine Cardiovascular Disease
DX: I48.91 Unspecified atrial fibrillation (principal); Z79.01 Long term (current) use of anticoagulants
CPT/HCPCS: 36415; 85610

== ENCOUNTER 2023-07-18 02:48 | Outpatient (CLI) | payer MEDICARE, BC, SELFPAY ==
[2023-07-18 11:28] LABS: INR 1.9 (0.9-1.1); Prothrombin Time 18.2 sec (9.1-11.1)
== END 2023-07-18 02:49 | disposition home or self-care (01) ==
LOC: LBO 02:48
PROVIDERS: PCP Internal Medicine; Visit Provider Internal Medicine Cardiovascular Disease
DX: I48.19 Other persistent atrial fibrillation (principal); Z79.01 Long term (current) use of anticoagulants
CPT/HCPCS: 36415; 85610

== ENCOUNTER 2023-07-25 04:20 | Outpatient (CLI) | payer MEDICARE, BC, SELFPAY ==
[2023-07-25 10:43] LABS: INR 2.7 (0.9-1.1); Prothrombin Time 24.6 sec (9.1-11.1)
== END 2023-07-25 04:21 | disposition home or self-care (01) ==
LOC: LBO 04:20
PROVIDERS: PCP Internal Medicine; Visit Provider Internal Medicine Cardiovascular Disease
DX: I48.19 Other persistent atrial fibrillation (principal); Z79.01 Long term (current) use of anticoagulants
CPT/HCPCS: 36415; 85610

== ENCOUNTER 2023-08-01 02:46 | Outpatient (CLI) | payer MEDICARE, BC, SELFPAY ==
[2023-08-01 10:45] LABS: INR 2.1 (0.9-1.1); Prothrombin Time 19.6 sec (9.1-11.1)
== END 2023-08-01 02:47 ==
LOC: LBO 02:46
PROVIDERS: PCP Internal Medicine; Visit Provider Internal Medicine Cardiovascular Disease
DX: I48.91 Unspecified atrial fibrillation (principal)
CPT/HCPCS: 11719; 36415; 85610

== ENCOUNTER 2023-08-08 03:56 | Outpatient (CLI) | payer MEDICARE, BC, SELFPAY ==
[2023-08-08 10:44] LABS: INR 2.1 (0.9-1.1); Prothrombin Time 19.8 sec (9.1-11.1)
== END 2023-08-08 03:57 | disposition home or self-care (01) ==
LOC: LBO 03:56
PROVIDERS: PCP Internal Medicine; Visit Provider Internal Medicine Cardiovascular Disease
DX: I48.19 Other persistent atrial fibrillation (principal); Z79.01 Long term (current) use of anticoagulants
CPT/HCPCS: 36415; 85610

== ENCOUNTER 2023-08-22 03:11 | Outpatient (CLI) | payer MEDICARE, BC, SELFPAY ==
[2023-08-22 11:07] LABS: INR 2.3 (0.9-1.1); Prothrombin Time 21.6 sec (9.1-11.1)
== END 2023-08-22 03:12 | disposition home or self-care (01) ==
LOC: LBO 03:11
PROVIDERS: PCP Internal Medicine; Visit Provider Internal Medicine Cardiovascular Disease
DX: I48.19 Other persistent atrial fibrillation (principal); Z79.01 Long term (current) use of anticoagulants
CPT/HCPCS: 36415; 85610

== ENCOUNTER 2023-09-05 04:08 | Outpatient (CLI) | payer MEDICARE, BC, SELFPAY ==
[2023-09-05 11:11] LABS: INR 2.1 (0.9-1.1); Prothrombin Time 19.9 sec (9.1-11.1)
== END 2023-09-05 04:09 | disposition home or self-care (01) ==
LOC: LBO 04:08
PROVIDERS: PCP Internal Medicine; Visit Provider Internal Medicine Cardiovascular Disease
DX: I48.19 Other persistent atrial fibrillation (principal)
CPT/HCPCS: 36415; 85610

== ENCOUNTER 2023-10-03 05:32 | Outpatient (CLI) | payer MEDICARE, BC, SELFPAY ==
[2023-10-03 11:03] LABS: HCT 44.8 % (40.0-50.0); HGB 14.9 g/dL (13.5-17.5); MCH 30.4 pg (27.0-33.0); MCHC 33.3 % (32.0-36.0); MCV 91 fL (80-95); Platelet Count 204 10^3/uL (130-400); RDW 13.5 % (11.8-14.1); RDW-SD 45.6 fL; WBC 6.35 10^3/uL (4.4-10.8)
[2023-10-03 11:06] LABS: Bilirubin Negative (Negative); Blood Negative (Negative); Clarity Clear (Clear); Glucose Negative (Negative); Ketones Negative (Negative); Leukocyte Esterase Negative (Negative); Nitrite Negative (Negative); Urobilinogen 0.2 mg/dL (Up to 0.2); pH 5.5 (5-8)
[2023-10-03 11:13] LABS: INR 2.7 (0.9-1.1); Prothrombin Time 25.2 sec (9.1-11.1)
[2023-10-03 11:23] LABS: ALT 31 U/L (16-63); AST 23 U/L (15-37); Albumin 3.9 g/dL (3.4-5.0); Alkaline Phosphatase 50 U/L (46-116); Anion Gap 9.4 mmol/L (3-11); BUN 41 mg/dL (7-18); Bilirubin, Total 0.8 mg/dL (0.2-1.0); CO2 29.6 mmol/L (21.0-32.0); CREATININE 1.8 mg/dL (0.70-1.30); Calcium 9.7 mg/dL (8.5-10.1); Calculated LDL 43 mg/dL (<100); Chloride 103 mmol/L (98-107); Cholesterol 146 mg/dL (<200); Estimated GFR 38.05 (mL/min/1.73m2); Glucose 181 mg/dL (74-106); HDL Cholesterol 29 mg/dL (40-60); Potassium 4.1 mmol/L (3.5-5.1); Sodium 142 mmol/L (136-145); Total Protein 7.7 g/dL (6.4-8.2); Triglyceride 374 mg/dL (<150)
[2023-10-03 11:49] LABS: COMMENT (LAB VIEW ONLY) 117.55 mg/dL; Microalb ug/mg Crea 11.7 ug/mg Cr
[2023-10-04 09:48] LABS: Hepatitis C Ab w Rflx HCV PCR Negative (Negative)
== END 2023-10-03 05:33 | disposition home or self-care (01) ==
LOC: LBO 05:32
PROVIDERS: Internal Medicine Geriatric Medicine; PCP Internal Medicine; Visit Provider Internal Medicine Cardiovascular Disease
DX: I48.19 Other persistent atrial fibrillation (principal); E11.21 Type 2 diabetes mellitus with diabetic nephropathy
CPT/HCPCS: 36415; 80053; 80061; 85027; 86803; 81003; 82043; 82570; 85610

== ENCOUNTER 2023-11-07 05:06 | Outpatient (CLI) | payer MEDICARE, BC, SELFPAY ==
[2023-11-07 10:40] LABS: INR 2.4 (0.9-1.1); Prothrombin Time 22.3 sec (9.1-11.1)
== END 2023-11-07 05:07 | disposition home or self-care (01) ==
LOC: LBO 05:06
PROVIDERS: PCP Internal Medicine; Visit Provider Internal Medicine Cardiovascular Disease
DX: I48.19 Other persistent atrial fibrillation (principal)
CPT/HCPCS: 36415; 85610

== ENCOUNTER 2023-12-05 01:51 | Outpatient (CLI) | payer MEDICARE, BC, SELFPAY ==
[2023-12-05 10:53] LABS: INR 2.2 (0.9-1.1)
== END 2023-12-05 01:52 | disposition home or self-care (01) ==
LOC: LBO 01:51
PROVIDERS: PCP Internal Medicine; Visit Provider Internal Medicine Cardiovascular Disease
DX: I48.19 Other persistent atrial fibrillation (principal)
CPT/HCPCS: 36415; 85610

== ENCOUNTER 2024-01-02 02:22 | Outpatient (CLI) | payer MEDICARE, BC, SELFPAY ==
[2024-01-02 10:50] LABS: Anion Gap 6.8 mmol/L (3-11); BUN 36 mg/dL (7-18); CO2 32.2 mmol/L (21.0-32.0); CREATININE 1.8 mg/dL (0.70-1.30); Calcium 9.5 mg/dL (8.5-10.1); Chloride 104 mmol/L (98-107); Estimated GFR 37.82 (mL/min/1.73m2); Glucose 170 mg/dL (74-106); Potassium 4.2 mmol/L (3.5-5.1); Sodium 143 mmol/L (136-145)
[2024-01-02 10:54] LABS: INR 2.6 (0.9-1.1); Prothrombin Time 23.7 sec (9.1-11.1)
== END 2024-01-02 02:23 | disposition home or self-care (01) ==
LOC: LBO 02:23
PROVIDERS: Registered Nurse Nephrology; PCP Internal Medicine; Visit Provider Internal Medicine Cardiovascular Disease
DX: I48.19 Other persistent atrial fibrillation (principal); E83.52 Hypercalcemia; N18.32 Chronic kidney disease, stage 3b
CPT/HCPCS: 36415; 80048; 85610

== ENCOUNTER 2024-01-30 03:44 | Outpatient (CLI) | payer MEDICARE, BC, SELFPAY ==
[2024-01-30 10:26] LABS: INR 1.7 (0.9-1.1); Prothrombin Time 16.5 sec (9.1-11.1)
== END 2024-01-30 03:45 | disposition home or self-care (01) ==
LOC: LBO 03:44
PROVIDERS: PCP Internal Medicine; Visit Provider Internal Medicine Cardiovascular Disease
DX: I48.19 Other persistent atrial fibrillation (principal)
CPT/HCPCS: 36415; 85610

== ENCOUNTER 2024-02-06 03:08 | Outpatient (CLI) | payer MEDICARE, BC, SELFPAY ==
[2024-02-06 10:56] LABS: INR 2.4 (0.9-1.1); Prothrombin Time 22.2 sec (9.1-11.1)
== END 2024-02-06 03:09 | disposition home or self-care (01) ==
LOC: LBO 03:08
PROVIDERS: PCP Internal Medicine; Visit Provider Internal Medicine Cardiovascular Disease
DX: I48.19 Other persistent atrial fibrillation (principal)
CPT/HCPCS: 36415; 85610

== ENCOUNTER 2024-02-20 03:23 | Outpatient (CLI) | payer MEDICARE, BC, SELFPAY ==
[2024-02-20 10:57] LABS: INR 2.7 (0.9-1.1); Prothrombin Time 24.9 sec (9.1-11.1)
== END 2024-02-20 03:24 | disposition home or self-care (01) ==
LOC: LBO 03:23
PROVIDERS: PCP Internal Medicine; Visit Provider Internal Medicine Cardiovascular Disease
DX: I48.19 Other persistent atrial fibrillation (principal)
CPT/HCPCS: 36415; 85610

== ENCOUNTER 2024-03-19 02:33 | Outpatient (CLI) | payer MEDICARE, BC, SELFPAY ==
[2024-03-19 10:36] LABS: Prothrombin Time 21.1 sec (9.1-11.1)
[2024-03-19 11:00] LABS: INR 2.2 (0.9-1.1)
== END 2024-03-19 02:34 | disposition home or self-care (01) ==
LOC: LBO 02:33
PROVIDERS: PCP Internal Medicine; Visit Provider Internal Medicine Cardiovascular Disease
DX: I48.19 Other persistent atrial fibrillation (principal)
CPT/HCPCS: 36415; 85610

== ENCOUNTER 2024-04-16 03:32 | Outpatient (CLI) | payer MEDICARE, BC, SELFPAY ==
[2024-04-16 10:54] LABS: HCT 41.9 % (40.0-50.0); MCH 30.2 pg (27.0-33.0); MCHC 33.4 % (32.0-36.0); MCV 91 fL (80-95); MPV 10.2 fL (8.0-11.0); Platelet Count 180 10^3/uL (130-400); RBC 4.63 10^6/uL (4.36-5.78); RDW 13.6 % (11.8-14.1); RDW-SD 45.3 fL
[2024-04-16 10:57] LABS: Bilirubin Negative (Negative); Blood Negative (Negative); Clarity Clear (Clear); Glucose Negative (Negative); Ketones Negative (Negative); Leukocyte Esterase Negative (Negative); Nitrite Negative (Negative); Specific Gravity 1.015 (1.005-1.025); Urobilinogen 0.2 mg/dL (Up to 0.2)
[2024-04-16 11:05] LABS: INR 2.7 (0.9-1.1)
[2024-04-16 11:10] LABS: COMMENT (LAB VIEW ONLY) 33.44 mg/dL; Microalb ug/mg Crea 28.1 ug/mg Cr
[2024-04-16 11:11] LABS: ALT 31 U/L (16-63); AST 28 U/L (15-37); Albumin 3.5 g/dL (3.4-5.0); Alkaline Phosphatase 51 U/L (46-116); Anion Gap 5.7 mmol/L (3-11); BUN 33 mg/dL (7-18); Bilirubin, Total 0.84 mg/dL (0.2-1.0); CO2 30.3 mmol/L (21.0-32.0); CREATININE 1.8 mg/dL (0.70-1.30); Calcium 9.9 mg/dL (8.5-10.1); Calculated LDL 70 mg/dL (<100); Chloride 104 mmol/L (98-107); Cholesterol 145 mg/dL (<200); Estimated GFR 37.82 (mL/min/1.73m2); Glucose 189 mg/dL (74-106); HDL Cholesterol 31 mg/dL (40-60); Sodium 140 mmol/L (136-145); Total Protein 7.2 g/dL (6.4-8.2); Triglyceride 224 mg/dL (<150)
[2024-04-16 19:00] LABS: PSA, Screening 0.3 ng/mL (<=6.5)
== END 2024-04-16 03:33 | disposition home or self-care (01) ==
PROVIDERS: Registered Nurse; PCP Internal Medicine; Visit Provider Internal Medicine Geriatric Medicine
DX: I48.19 Other persistent atrial fibrillation (principal); E11.21 Type 2 diabetes mellitus with diabetic nephropathy; Z12.5 Encounter for screening for malignant neoplasm of prostate
CPT/HCPCS: 36415; 80053; 80061; 84153; 85027; 81003; 82043; 82570; 83036; 85610

== ENCOUNTER 2024-05-14 02:22 | Outpatient (CLI) | payer MEDICARE, BC, SELFPAY ==
[2024-05-14 11:18] LABS: INR 2.4 (0.9-1.1)
== END 2024-05-14 02:23 | disposition home or self-care (01) ==
PROVIDERS: PCP Internal Medicine; Visit Provider Registered Nurse
DX: I48.19 Other persistent atrial fibrillation (principal)
CPT/HCPCS: 36415; 85610

== ENCOUNTER 2024-06-11 04:32 | Outpatient (CLI) | payer MEDICARE, BC, SELFPAY ==
[2024-06-11 10:40] LABS: INR 1.7 (0.9-1.1)
== END 2024-06-11 04:33 | disposition home or self-care (01) ==
PROVIDERS: Internal Medicine Cardiovascular Disease; PCP Internal Medicine; Visit Provider Registered Nurse
DX: I48.19 Other persistent atrial fibrillation (principal)
CPT/HCPCS: 36415; 85610

== ENCOUNTER 2024-07-02 03:59 | Outpatient (CLI) | payer MEDICARE, BC, SELFPAY ==
[2024-07-02 10:22] LABS: Prothrombin Time 18.9 sec (9.1-11.1)
== END 2024-07-02 04:00 | disposition home or self-care (01) ==
PROVIDERS: PCP Internal Medicine; Visit Provider Registered Nurse
DX: I48.19 Other persistent atrial fibrillation (principal)
CPT/HCPCS: 36415; 85610

== ENCOUNTER 2024-10-08 02:21 | Outpatient (CLI) | payer MEDICARE, BC, SELFPAY ==
[2024-10-08 10:32] LABS: INR 2.4 (0.9-1.1); Prothrombin Time 22.3 sec (9.1-11.1)
== END 2024-10-08 02:22 | disposition home or self-care (01) ==
PROVIDERS: PCP Internal Medicine; Visit Provider Registered Nurse
DX: I48.19 Other persistent atrial fibrillation (principal)
CPT/HCPCS: 36415; 85610

== ENCOUNTER 2024-11-26 02:37 | Outpatient (CLI) | payer MEDICARE, BC, SELFPAY ==
[2024-11-26 11:10] LABS: INR 2.2 (0.9-1.1); Prothrombin Time 20.7 sec (9.1-11.1)
[2024-11-26 11:29] LABS: COMMENT (LAB VIEW ONLY) 31.63 mg/dL; Microalb ug/mg Crea 27.2 ug/mg Cr
[2024-11-26 11:39] LABS: TSH (W/Ref FT4) 1.72 uIU/mL (0.36-3.74)
== END 2024-11-26 02:38 | disposition home or self-care (01) ==
PROVIDERS: PCP Internal Medicine; Visit Provider Registered Nurse
DX: I48.19 Other persistent atrial fibrillation (principal); E04.2 Nontoxic multinodular goiter
CPT/HCPCS: 36415; 82043; 82570; 84443; 85610

== ENCOUNTER 2025-01-07 02:45 | Outpatient (CLI) | payer MEDICARE, BC, SELFPAY ==
[2025-01-07 12:24] LABS: INR 2.9 (0.9-1.1); Prothrombin Time 26.8 sec (9.1-11.1)
== END 2025-01-07 02:46 | disposition home or self-care (01) ==
PROVIDERS: PCP Internal Medicine; Visit Provider Registered Nurse
DX: I48.19 Other persistent atrial fibrillation (principal)
CPT/HCPCS: 36415; 85610

== ENCOUNTER 2025-02-18 02:25 | Outpatient (CLI) | payer MEDICARE, BC, SELFPAY ==
[2025-02-18 11:17] LABS: INR 2.6 (0.9-1.1); Prothrombin Time 24.4 sec (9.1-11.1)
== END 2025-02-18 02:26 | disposition home or self-care (01) ==
PROVIDERS: PCP Internal Medicine; Visit Provider Registered Nurse
DX: I48.19 Other persistent atrial fibrillation (principal)
CPT/HCPCS: 36415; 85610

== ENCOUNTER 2025-04-01 01:08 | Outpatient (CLI) | payer MEDICARE, BC, SELFPAY ==
[2025-04-01 11:57] LABS: Prothrombin Time 21.4 sec (9.1-11.1)
[2025-04-01 11:58] LABS: INR 2.2 (0.9-1.1)
== END 2025-04-01 01:09 | disposition home or self-care (01) ==
PROVIDERS: Internal Medicine Cardiovascular Disease; PCP Internal Medicine; Visit Provider Registered Nurse
DX: I48.19 Other persistent atrial fibrillation (principal)
CPT/HCPCS: 36415; 85610

== ENCOUNTER 2025-05-13 03:30 | Outpatient (CLI) | payer MEDICARE, BC, SELFPAY ==
[2025-05-13 10:59] LABS: INR 1.9 (0.9-1.1); Prothrombin Time 18.5 sec (9.1-11.1)
== END 2025-05-13 03:31 | disposition home or self-care (01) ==
LOC: LBO 03:31
PROVIDERS: PCP Internal Medicine; Visit Provider Internal Medicine Cardiovascular Disease
DX: I48.19 Other persistent atrial fibrillation (principal)
CPT/HCPCS: 36415; 85610